=== PATIENT | female | born 2000 | race Caucasian/White ===

== ENCOUNTER 2022-12-17 17:34 | Emergency (ER) | payer OTHER, SELFPAY ==
[2022-12-17 18:25] VITALS: BP 116/56; PULSE 83; RESP 18; TEMP 37.1; O2SAT 98; BMI 21.5
--- NOTE | 2022-12-17 18:25 | ED_ITS ---
HPI - Female Genitourinary General Chief complaint: General Medical Stated complaint: vaginal swelling,redness Time Seen by Provider: 12/17/22 22:38 Related Data Allergies Allergy/AdvReac Type Severity Reaction Status Date / Time acetaminophen [From Tylenol] Allergy Hives Verified 12/17/22 18:25 PMFSH Social History Social History Advance Directives: No Advance Directives Information Provided: No Physical Exam Vital Signs: Vital Signs: Last Vital Signs Temp 98.8 F 12/17/22 18:25 Pulse 83 12/17/22 18:25 Resp 18 12/17/22 18:25 BP 116/56 L 12/17/22 18:25 Pulse Ox 98 12/17/22 18:25 O2 Del Method Room Air 12/17/22 18:25 BMI result Body Mass Index 21.5 Course Course Course Narrative: This is a rapid medical exam. deferred additional HPI, ROS, PE to primary provider. 22 yo female with history of seizures on keppra here with complaints of left sided vaginal swelling, pain, +vaginal discharge. Recently completed an antibiotic for an unknown vaginal infection. +sexually active. Unable to visualize in triage. Will obtain UA, ur preg, CT NG Will need pelvic exam VSS Reevaluation(s) Reevaluation #1: Patient eloped prior to being seen. Medical Decision Making Lab Data Labs: Lab Results 12/17/22 Range/Units 21:17 Urine Color Yellow Urine Appearance Clear Urine pH 5.5 (5.0-9.0) Ur Specific [place] 1.025 (1.005-1.025) Urine Protein Negative (Neg-Trace) mg/dL Urine Glucose (UA) Negative (Negative) mg/dL Urine Ketones Negative (Negative) mg/dL Urine Blood Negative (Negative) Urine Nitrite Negative (Negative) Ur Leukocyte Esterase Moderate (2+) H (Negative) Urine RBC 0-2 (0-2) /HPF Urine WBC 11-20 H (0-5) /HPF Ur Squamous Epith Cells 6-10 (0-2) /HPF Urine Bacteria 1+ (None Seen) Hyaline Casts 0-2 (0-2) /LPF Urine Test NEGATIVE (NEGATIVE) Discharge Plan Discharge Clinical Impression: Vaginal discharge Patient Disposition: Elopement
[2022-12-17 21:27] LABS: Appearance Urine Clear; Color Urine Yellow; Glucose Urine UA Negative (Negative); Leukocyte Esterase Urine Moderate (2+) (Negative); Nitrite Urine Negative (Negative); PH 5.5 (5.0-9.0); Specific Gravity - Urine 1.025 (1.005-1.025); UMIC TRIGGER UACC YES; Urine Blood Negative (Negative); Urine Ketones Negative (Negative); Urine Protein Negative (Neg-Trace)
[2022-12-17 21:28] LABS: UPreg QC Valid YES; Urine Pregnancy NEGATIVE (NEGATIVE)
[2022-12-17 21:29] LABS: Bacteria Urine 1+ (None Seen); Hyaline Casts Urine 0-2 /LPF (0-2); RBC Urine 0-2 /HPF (0-2); UACC Culture Trigger YES
--- OUTSIDE RECORDS SUMMARY | 2022-12-17 22:03 | XMS_ITS | Summary of Care ---
Author Name Unknown Organization [facility] sp[facility] Address [address] [place] [address]- Care Team Providers Care Facility Designer Name Role Phone [facility] Primary Care Physic kash Encounter CHB_CSN [id number] Date(s): 05/12/20 - 05/12/[address] [address]- [facility] Encounter Diagnosis Cellulitis of face(Discharge Diagnosis) - 05/12/20 Vomiting(Discharge Diagnosis) - 05/12/20 Abdominal pain(Discharge Diagnosis) - 05/12/20 Discharge Disposition: Home Attending Physician: JEANNINE ABEBE MD Referring Physician: JACKSON FIERRO MD Allergies, Adverse Reactions, Alerts Substance Reaction Severity Status Tylenol Active Medications cephalexin 500 mg oral capsule Dose: 500 mg, PO, QID, Take for 7 day, Dispense Quantity: 28 cap, Entered: 05/12/20 2:46:00 EST, Stop: 05/19/20 2:46:00 EST, [id number] Start Date: 05/12/20 Stop Date: 05/19/20 Status: Ordered Problem List Condition Effective Dates Status Health Status Inform ant Dental caries(Confirmed) Active Dysfunctional uterine bleeding(Confirmed) Active Prolonged QT interval(Confirmed) 1 Active 1Added by [facility]
[2022-12-18 02:19] LABS: CT PCR NOT DETECTED (Not Detect.); NG PCR NOT DETECTED (Not Detect.)
== END 2022-12-17 22:59 | disposition left against medical advice (07) ==
PROVIDERS: Nurse Practitioner Family; Emergency Provider Emergency Medicine
DX: N89.8 Other specified noninflammatory disorders of vagina (principal); Z79.899 Other long term (current) drug therapy
CPT/HCPCS: 0353U; 81001; 81025; 87086; 99282; 99283

== ENCOUNTER 2022-12-18 14:04 | Emergency (ER) | payer OTHER, SELFPAY ==
[2022-12-18 15:30] VITALS: BP 124/52; PULSE 85; RESP 17; TEMP 36.3; O2SAT 100; BMI 22.4
--- NOTE | 2022-12-18 17:13 | ED_ITS ---
HPI - General Adult General Chief complaint: General Medical Stated complaint: Swelling Private Area Time Seen by Provider: 12/18/22 17:12 Source: patient and old records reviewed Mode of arrival: ambulatory Limitations: no limitations History of Present Illness HPI narrative: 22-year-old female presents to the ER for evaluation of left labia swelling and redness.She states it started a couple of days ago and has been very itchy. She tried [id number] 1 time intravaginal yeast infection treatment with no relief. She was seen here yesterday, had a negative gonorrhea and chlamydia test but ended up eloping from the waiting room. She states she did have transient green vaginal discharge over week ago that has since resolved. No further vaginal discharge. She states her last menstrual period was about a month ago and was for 4 days. She has not had sex in 4-6 weeks. No lesions on her genitalia. No urinary symptoms. MD complaint: Left labia redness, swelling, itching Onset (ago): day(s) Location: genitals Radiation: non-radiation Severity: moderate Quality: aching Pain Consistency: intermittent Exacerbating factors: other ( palpation) Associated symptoms: denies other symptoms Treatments prior to arrival: none Related Data Previous Rx's Medication Instructions Recorded clotrimazole 1 % topical cream 1 appl topical BID #45 grams 12/18/22 fluconazole 150 mg tablet 150 mg PO Q3D 2 doses #2 tabs 12/18/22 (Diflucan) Allergies Allergy/AdvReac Type Severity Reaction Status Date / Time acetaminophen [From Tylenol] Allergy Hives Verified 12/17/22 18:25 Review of Systems Review of Systems: Yes all other systems are reviewed and are negative [facility] Social History Social History Advance Directives: No Advance Directives Information Provided: No Physical Exam ED Vital Signs: Vital Signs - 24 hr 12/18/22 15:30 Temperature 97.3 F Pulse Rate 85 Respiratory Rate 17 Blood Pressure 124/52 L Pulse Oximetry 100 Oxygen Delivery Method Room Air BMI result Body Mass Index 22.4 Appearance: Alert. Oriented X3. No acute distress. HEENT: normal inspection CVS: Normal heart rate and rhythm. Pulses normal. Respiratory: No respiratory distress. Skin: Skin warm and dry. Normal skin color. Normal skin turgor. No rashes. Abd: soft nontender, nondistended, +BS : left labia minora with mild swelling near the introitus, w/ white discharge on the skin of both labia minora, mild excoriation, no vesicles. no induration or fluctuance. Extremities: normal inspection x4. Neuro: Oriented X 3. No motor deficit. No sensory deficit. Medical Decision Making Medical Decision Making [facility] Narrative: 22-year-old female presents to the ER for evaluation of left labial redness, pain, itching and swelling for the last couple of days. Previously had green vaginal discharge and tested negative for STIs yesterday. No current vaginal discharge. Examination is most consistent with a skin yeast infection. She failed [id number]-[id number] 1 time treatment with topical antifungal. Will plan to start Diflucan for her. Outpatient follow-up was encouraged. Stable for discharge home. Differential Diagnosis Differential Diagnoses: The differential diagnosis associated with the p resentation includes yeast infection, folliculitis, abscess, bartholin cyst, STI, UTI, herpes Lab Data [facility] Lab Attestation statement: I reviewed the patient's lab results. Urinalysis from yesterday was negative for , question of you TI however there was squamous cell contamination and patient has no urinary symptoms External Record Review External record reviewed: Prior outpatient labs Prescription Management I considered prescription management with: Other (antifungal) Social Determinants Patient?s care significantly limited by Social Determinants of Health including: Other Social Determinant of Health Critical Care Time Critical Care Time Critical Care Time: No Discharge Plan Discharge Clinical Impression: Skin yeast infection Patient Disposition: Home, Self-Care Instructions: Skin Yeast Infection (ED) Additional Instructions: Take the prescribed antifungal medication as directed. Take her 1st oral dose tonight. Use the topical cream as directed, for at least 1 week. Recommend following up with local [facility] for additional evaluation and treatment if symptoms persist If you develop new or worsening symptoms call 911 or come back to the ER for further evaluation. Prescriptions: New fluconazole [Diflucan] 150 mg tablet 150 mg PO Q3D Qty: 2 0RF clotrimazole 1 % cream 1 appl topical BID Qty: 45 0RF Interventions: ED Discharge Assessment Last Done: 12/18/22 17:59 Discharge Date/Time: 12/18/22 18:02
== END 2022-12-18 18:02 | disposition home or self-care (01) ==
PROVIDERS: Emergency Provider Emergency Medicine
DX: B37.2 Candidiasis of skin and nail (principal); N89.8 Other specified noninflammatory disorders of vagina
CPT/HCPCS: 99282; 99283

== ENCOUNTER 2023-01-11 11:18 | Emergency (ER) | payer OTHER, SELFPAY ==
[2023-01-11 12:14] VITALS: BP 106/52; PULSE 65; RESP 17; TEMP 36.1; O2SAT 99; BMI 23.1
--- NOTE | 2023-01-11 12:24 | ED.GENADULT ---
HPI - General Adult General Chief complaint: General Medical Stated complaint: Vaginal irritation Time Seen by Provider: 01/11/23 12:32 Source: patient Mode of arrival: ambulatory Limitations: no limitations History of Present Illness HPI narrative: Patient is a 22 year old assigned female at with no reported medical history presenting to the emergency department today with vaginal irritation. Patient states that over the last few days her vulva has been much more irritated with an odor and some discharge. Patient denies any dizziness, lightheadedness, abdominal pain, nausea, vomiting, fever, chills, blurry vision, double vision, loss of vision, chest pain, difficulty breathing, shortness of breath, back pain, night sweats, pain with urination, increased urinary frequency, increased urinary urgency, blood in her urine or stool, syncope or a near syncopal episode, recent trauma or falls, bowel incontinence, bladder incontinence, bowel retention, bladder retention, or any other complaints at this time. Onset (ago): day(s) Location: genitals Radiation: non-radiation Severity: mild Severity scale (1-10): 4 Quality: burning and aching Pain Consistency: constant Relieving factors: none Exacerbating factors: none Associated symptoms: denies other symptoms Treatments prior to arrival: none Related Data Previous Rx's Medication Instructions Recorded clotrimazole 1 % topical cream 1 appl topical BID #45 grams 12/18/22 fluconazole 150 mg tablet 150 mg PO Q3D 2 doses #2 tabs 12/18/22 (Diflucan) doxycycline hyclate 100 mg tablet 100 mg PO BID 7 days #14 tabs 01/11/23 fluconazole 150 mg tablet 150 mg PO Q3D 2 doses #2 tabs 01/11/23 (Diflucan) metronidazole 500 mg tablet 500 mg PO BID 7 days #14 tabs 01/11/23 Allergies Allergy/AdvReac Type Severity Reaction Status Date / Time acetaminophen [From Tylenol] Allergy Hives Verified 12/17/22 18:25 Review of Systems Constitutional: Constitutional: Reports no additional constitutional complaints, Denies chills, Denies fever(s) and Denies night sweats Eyes: Eyes: Reports no additional eye complaints, Denies blurry vision, Denies change in vision, Denies diplopia, Denies eye discharge, Denies loss of vision and Denies eye pain ENT: Denies dizziness Cardiovascular: Cardiovascular: Reports no additional cardiovascular complaints, Denies chest pain, Denies lightheadedness, Denies Loss of Consciousness and Denies dyspnea Respiratory: Respiratory: Reports no additional respiratory complaints and Denies dyspnea Gastrointestinal: Gastrointestinal: Reports no additional gastrointestinal complaints, Denies abdominal pain, Denies melena, Denies hematochezia, Denies change in bowel habits and Denies change in stool character Genitourinary: Genitourinary: Denies hematuria, Denies urinary frequency, Denies dysuria, Denies urinary incontinence, Denies urinary hesitancy, Denies urinary urgency, Reports vaginal discharge, Reports vaginal odor and Reports vaginal pruritus Musculoskeletal: Musculoskeletal: Reports no additional musculoskeletal complaints, Denies numbness and Denies tingling Neurologic: Denies dizziness, Denies loss of vision, Denies numbness and Denies tingling Psychiatric: Psychiatric: Reports no additional psychiatric complaints Endocrine: Endocrine: Reports no additional endocrine complaints Hematologic/Lymphatic: Hematologic/Lymphatic: Reports no additional hematologic/lymphatic complaints Allergic/Immunologic: Allergic/Immunologic: Reports no additional allergic/immunologic complaints PMFSH Past Medical History Attestation statement: The following information was validated with the patient. Source: old records reviewed and nursing notes reviewed Social History Social History Advance Directives: No Advance Directives Information Provided: Yes Physical Exam ED Vital Signs: Vital Signs - 24 hr 01/11/23 12:14 Temperature 96.9 F Pulse Rate 65 Respiratory Rate 17 Blood Pressure 106/52 L Pulse Oximetry 99 Oxygen Delivery Method Room Air BMI result Body Mass Index 23.1 Const General: cooperative, no acute distress, alert and awake Nutritional Appearance: well nourished Orientation/consciousness: patient oriented x3 Limitations: no limitations HENMT Head: Yes normal to inspection and Yes atraumatic Ears: hearing grossly normal bilaterally and external ears normal General nose exam: Normal external nose present, no nasal discharge noted and no epistaxis Face and sinus: Yes normal facial exam, No abrasion and No laceration Mouth: Normal oral and palatal mucosa present, no drooling and no muffled voice Eyes General: appearance normal, both eyes and all related structures Periorbital: periorbital findings normal Eyelids: Yes eyelids normal Conjunctivae: conjunctivae normal Pupils: Equal, round and reactive pupils present EOM: EOMs intact bilaterally Neck Neck: Yes normal visual inspection, Yes full ROM and Yes no lymphadenopathy Chest Chest palpation & inspection: normal inspection of the chest Resp Effort & Inspection: normal respiratory effort and able to speak in complete sentences GI Inspection: Yes normal to inspection General: Yes deferred Neuro General: patient oriented x3 and moves all extremities Cranial nerves: Yes Equal, round and reactive pupils present Cognition (Neuro): normal cognition Motor exam (neuro): 5/5 motor strength present throughout Sensory Exam: Normal double simultaneous stimulation for sensation Coordination: [id number]-[id number] test normal Extrem General: Yes normal to inspection, Yes full ROM and Yes capillary refill normal Psych Appearance: grossly normal Mental Status: mental status grossly normal Affect: normal affect Attitude: cooperative Thought process: Normal thought process present Thought content: Normal thought content present Insight: Good insight present (Psych) Course Course Course Narrative: This is an RME: Additional HPI, ROS, PE not included below will be deferred to primary provider. This is a [id number], with a hx of seizures on Keppra, presenting to the ER with complaint of vaginal irritation x several days. Pt has been seen here twice in december for similar symptoms. Pt currently on phone with PCP who is requesting keppra levels. Difficult to get a history from patient given pt actively being on the phone. Needs pelvic examination. Medications Administered Discontinued Medications Generic Name Dose Route Start Last Admin Trade Name Rosario PRN Reason Stop Dose Admin Ceftriaxone Sodium 500 mg/ 0 mg 01/11/23 12:38 01/11/23 13:20 Lidocaine HCl 1 ml IM 01/11/23 12:39 500 kit ONCE ONE Administration Medical Decision Making Medical Decision Making [facility] Narrative: Patient is a 22 year old assigned female at with no reported medical history presenting to the emergency department today with vaginal irritation. Patient's physical exam was unremarkable. Patient requested to defer a vaginal examination. Patient's urine showed a possible urinary tract infection however, given the patient's clinical presentation, will await until culture report to treat. Patient treated with ceftriaxone, PO Doxy, PO flagyl, and PO diflucan. I explained my physical exam findings as well as all test results to the patient. I answered all questions asked by the patient. I stressed the importance of the patient taking her medication as prescribed. I stressed the importance of the patient following up with her primary care provider. I stressed the importance of the patient returning to the emergency department immediately if her symptoms were to worsen or if she were to develop any dizziness, shortness of breath, difficulty breathing, chest pain, blurry vision, loss of vision, nausea, vomiting, abdominal pain, fever, chills, back pain, or any other complaints. Patient verbalized agreement and understanding with this treatment plan and discharge. Differential Diagnosis Differential Diagnoses: The differential diagnosis associated with the presentation includes Vaginal yeast BV UTI STI exposure Chlamydia Gonorrhea Trich Lab Data MDM Lab Attestation statement: I reviewed the patient's lab results. My interpretation of these results are in the rationale portion of this note. Labs: Lab Results 01/11/23 Range/Units 12:40 Urine Color Yellow Urine Appearance Clear Urine pH 6.0 (5.0-9.0) Ur Specific [place] 1.025 (1.005-1.025) Urine Protein Negative (Neg-Trace) mg/dL Urine Glucose (UA) Negative (Negative) mg/dL Urine Ketones Negative (Negative) mg/dL Urine Blood Negative (Negative) Urine Nitrite Negative (Negative) Ur Leukocyte Esterase Small (1+) H (Negative) Urine RBC 0-2 (0-2) /HPF Urine WBC 0-5 (0-5) /HPF Ur Squamous Epith Cells 6-10 (0-2) /HPF Urine Bacteria Trace (None Seen) Hyaline Casts 0-2 (0-2) /LPF Urine Test NEGATIVE (NEGATIVE) Prescription Management I considered prescription management with: Antibiotic (patient prescribed an antibiotic.) and Other (patient prescribed an antifungal.) Discharge Plan Discharge Clinical Impression: Vaginal irritation Patient Disposition: Home, Self-Care Instructions: Vaginal Discharge (ED) Additional Instructions: Follow up with your primary care provider. Return to the emergency department immediately if your symptoms worsen or if you develop any dizziness, shortness of breath, difficulty breathing, chest pain, blurry vision, loss of vision, nausea, vomiting, abdominal pain, fever, chills, back pain, or any other complaints. Prescriptions: New fluconazole [Diflucan] 150 mg tablet 150 mg PO Q3D Qty: 2 0RF metronidazole 500 mg tablet 500 mg PO BID 7 Days Qty: 14 0RF doxycycline hyclate 100 mg tablet 100 mg PO BID 7 Days Qty: 14 0RF No Action fluconazole [Diflucan] 150 mg tablet 150 mg PO Q3D Qty: 2 0RF clotrimazole 1 % cream 1 appl topical BID Qty: 45 0RF Referrals: [facility] [place] Group] (Call to establish and follow up with a primary care provider. If you already have a primary care provider, please follow up with them.) [facility] [place] [facility] [Provider Group] (Call to establish and follow up with a primary care provider. If you already have a primary care provider, please follow up with them.) [facility] [place] [facility] [Provider Group] (Call to establish and follow up with a primary care provider. If you already have a primary care provider, please follow up with them.) Interventions: ED Discharge Assessment Last Done: 01/11/23 13:27 Discharge Date/Time: 01/11/23 13:29 Print Language: Malagasy
[2023-01-11 12:49] LABS: Appearance Urine Clear; Color Urine Yellow; Glucose Urine UA Negative (Negative); Leukocyte Esterase Urine Small (1+) (Negative); Nitrite Urine Negative (Negative); Specific Gravity - Urine 1.025 (1.005-1.025); UMIC TRIGGER UACC YES; Urine Blood Negative (Negative); Urine Ketones Negative (Negative); Urine Protein Negative (Neg-Trace)
[2023-01-11 12:50] LABS: UPreg QC Valid YES; Urine Pregnancy NEGATIVE (NEGATIVE)
[2023-01-11 13:04] LABS: Bacteria Urine Trace (None Seen); Hyaline Casts Urine 0-2 /LPF (0-2); RBC Urine 0-2 /HPF (0-2); UACC Culture Trigger YES; WBC Urine 0-5 /HPF (0-5)
[2023-01-11] MEDS: cefTRIAXone sodium 500 MG, Lidocaine HCl 1 % MPF 1 ML IM (13:20)
[2023-01-11 14:17] LABS: CT PCR NOT DETECTED (Not Detect.); NG PCR NOT DETECTED (Not Detect.)
== END 2023-01-11 13:29 | disposition home or self-care (01) ==
PROVIDERS: Physician Assistant Medical; Emergency Provider Emergency Medicine
DX: N89.8 Other specified noninflammatory disorders of vagina (principal); R30.0 Dysuria; Z79.899 Other long term (current) drug therapy
CPT/HCPCS: 0353U; 81001; 81025; 87086; 87147; 96372; 99283; 99284; J0696

== ENCOUNTER 2023-01-14 00:46 | Emergency (ER) | payer OTHER, SELFPAY ==
[2023-01-14 00:51] VITALS: BP 120/78; PULSE 88; O2SAT 99
[2023-01-14 01:31] VITALS: BP 115/60; PULSE 65; RESP 18; TEMP 36.7; O2SAT 98; BMI 25.8
[2023-01-14 02:20] LABS: Alanine Aminotransferase 10 U/L (0-31); Albumin Level 4.3 g/dL (3.5-5.0); Alkaline Phosphatase 78 U/L (39-117); Anion Gap 16 (12-20); Aspartate Amino Transferase 18 U/L (5-31); Bilirubin Total 0.3 mg/dL (0.0-1.0); Blood Urea Nitrogen 15 mg/dL (9-16); Calcium 9.8 mg/dL (8.4-10.2); Carbon Dioxide 23 mmol/L (22-29); Chloride 104 mmol/L (96-108); Creatinine Clr Calc Pharmacy 115.3; Estimated Glomerular Filt Rate > 60; Glucose Random 82 mg/dL (60-115); Lipase 23 U/L (8-78); Potassium 3.7 mmol/L (3.3-5.1); Sodium 139 mmol/L (135-145); Total Protein 7.7 g/dL (6.5-8.0)
[2023-01-14 02:23] VITALS: BP 109/55; PULSE 80; RESP 18; TEMP 36.7; O2SAT 98
[2023-01-14 02:30] LABS: Appearance Urine Clear; Color Urine Yellow; Glucose Urine UA Negative (Negative); Leukocyte Esterase Urine Negative (Negative); Nitrite Urine Negative (Negative); Specific Gravity - Urine 1.025 (1.005-1.025); Urine Blood Negative (Negative); Urine Ketones Negative (Negative); Urine Protein Negative (Neg-Trace)
[2023-01-14 02:31] LABS: Hematocrit 39.3 % (37.0-47.0); Hemoglobin 12.7 g/dl (12.0-16.0); Mean Corpuscular HGB Conc 32.3 g/dl (31.0-35.0); Mean Corpuscular Hemoglobin 26.3 pg (27.0-33.0); Mean Corpuscular Volume 81.5 fL (80.0-98.0); Mean Platelet Volume 12.2 fL (9.4-12.3); Platelet Count 215 X10*3/uL (160-400); Red Blood Count 4.82 X10*6/uL (4.20-5.50); Red Cell Distribution Width 14.4 % (11.0-16.0); White Blood Count 8.3 X10*3/uL (4.8-10.8)
[2023-01-14 02:32] LABS: UPreg QC Valid YES; Urine Pregnancy NEGATIVE (NEGATIVE)
--- NOTE | 2023-01-14 04:07 | ED_ITS ---
HPI - Abdominal Pain General Chief Complaint: Abdominal Pain Stated Complaint: Nausea/Vomitting and weakness Time Seen by Provider: 01/14/23 03:12 Source: patient Mode of arrival: ambulatory Limitations: no limitations History of Present Illness HPI narrative: Patient nonspecific complaints for last few days complaining of nausea weakness noticed patient relax in the ER having chips no active vomiting noticed no abdominal pain no urinary complaint Related Data Previous Rx's Medication Instructions Recorded clotrimazole 1 % topical cream 1 appl topical BID #45 grams 12/18/22 fluconazole 150 mg tablet 150 mg PO Q3D 2 doses #2 tabs 12/18/22 (Diflucan) doxycycline hyclate 100 mg tablet 100 mg PO BID 7 days #14 tabs 01/11/23 fluconazole 150 mg tablet 150 mg PO Q3D 2 doses #2 tabs 01/11/23 (Diflucan) metronidazole 500 mg tablet 500 mg PO BID 7 days #14 tabs 01/11/23 Allergies Allergy/AdvReac Type Severity Reaction Status Date / Time acetaminophen [From Tylenol] Allergy Hives Verified 12/17/22 18:25 Review of Systems Review of Systems Yes all other systems are reviewed and are negative [facility] Social History Social History Advance Directives: No Advance Directives Information Provided: Yes Physical Exam ED Vital Signs: Vital Signs - 24 hr 01/14/23 01:31 01/14/23 02:23 Temperature 98.0 F 98.1 F Pulse Rate 65 80 Respiratory Rate 18 18 Blood Pressure 115/60 109/55 L Pulse Oximetry 98 98 Oxygen Delivery Method Room Air Room Air BMI result Body Mass Index 25.8 Appearance: Alert. Oriented X3. No acute distress. Eyes: No pallor or icterus ENT: Pharynx normal. Oral Mucosa moist Neck: Normal inspection. Neck supple. CVS: Normal heart rate and rhythm. Pulses normal. Respiratory: No respiratory distress. Equal air entry bilateral, no wheezing/rales/rhonchi Abdomen: Soft and nontender. Bowel sounds are present, no mass palpable, no CVA tenderness Skin: Skin warm and dry. Normal skin color. Normal skin turgor. Neuro: Oriented X 3. Medical Decision Making Medical Decision Making MDM Narrative: Patient nonspecific complaints does not seem to be any distress refused to take discharge papers or medication discharge patient home Differential Diagnosis Differential Diagnoses: The differential diagnosis associated with the presentation includes Anxiety/viral syndrome Lab Data MDM Lab Attestation statement: I reviewed the patient's lab results. 01/14/23 01:57 01/14/23 01:57 Labs: Lab Results 01/14/23 01/14/23 Range/Units 01:56 01:57 WBC 8.3 (4.8-10.8) X10*3/uL RBC 4.82 (4.20-5.50) X10*6/uL Hgb 12.7 (12.0-16.0) g/dl Hct 39.3 (37.0-47.0) % MCV 81.5 (80.0-98.0) fL MCH 26.3 L (27.0-33.0) pg MCHC 32.3 (31.0-35.0) g/dl RDW 14.4 (11.0-16.0) % Plt Count 215 (160-400) X10*3/uL MPV 12.2 (9.4-12.3) fL Absolute Nucleated RBC 0.000 (0.0-0.012) X10*3/uL Nucleated RBC % (auto) 0.0 (0.0-0.2) /100WBC Sodium 139 (135-145) mmol/L Potassium 3.7 (3.3-5.1) mmol/L Chloride 104 (96-108) mmol/L Carbon Dioxide 23 (22-29) mmol/L Anion Gap 16 (12-20) BUN 15 (9-16) mg/dL Creatinine 0.71 (0.5-1.4) mg/dL Estim Creat Clear Calc 115.3 Estimated GFR > 60 Random Glucose 82 (60-115) mg/dL Calcium 9.8 (8.4-10.2) mg/dL Total Bilirubin 0.3 (0.0-1.0) mg/dL AST 18 (5-31) U/L ALT 10 (0-31) U/L Alkaline Phosphatase 78 (39-117) U/L Total Protein 7.7 (6.5-8.0) g/dL Albumin 4.3 (3.5-5.0) g/dL Lipase 23 (8-78) U/L Urine Color Yellow Urine Appearance Clear Urine pH 6.0 (5.0-9.0) Ur Specific [place] 1.025 (1.005-1.025) Urine Protein Negative (Neg-Trace) mg/dL Urine Glucose (UA) Negative (Negative) mg/dL Urine Ketones Negative (Negative) mg/dL Urine Blood Negative (Negative) Urine Nitrite Negative (Negative) Ur Leukocyte Esterase Negative (Negative) Urine Test NEGATIVE (NEGATIVE) Discharge Plan Discharge Clinical Impression: Weakness Patient Disposition: Home, Self-Care Instructions: Weakness (ED) Additional Instructions: Your labs and urine are normal Follow-up with your PCP for further management Prescriptions: No Action fluconazole [Diflucan] 150 mg tablet 150 mg PO Q3D Qty: 2 0RF clotrimazole 1 % cream 1 appl topical BID Qty: 45 0RF fluconazole [Diflucan] 150 mg tablet 150 mg PO Q3D Qty: 2 0RF metronidazole 500 mg tablet 500 mg PO BID 7 Days Qty: 14 0RF doxycycline hyclate 100 mg tablet 100 mg PO BID 7 Days Qty: 14 0RF
== END 2023-01-14 04:25 | disposition home or self-care (01) ==
PROVIDERS: Emergency Provider Internal Medicine
DX: R53.1 Weakness (principal)
CPT/HCPCS: 36415; 80053; 81003; 81025; 83690; 85027; 99283

== ENCOUNTER 2023-01-17 17:12 | Emergency (ER) | payer OTHER, SELFPAY ==
[2023-01-17 17:31] VITALS: BP 128/72; PULSE 92; O2SAT 98
== END 2023-01-17 22:15 | disposition left against medical advice (07) ==
LOC: HO.ED 21:53
PROVIDERS: Emergency Provider Emergency Medicine
DX: R10.9 Unspecified abdominal pain (principal)

== ENCOUNTER 2023-02-04 19:17 | Emergency (ER) | payer OTHER, SELFPAY ==
[2023-02-04 19:23] VITALS: BP 120/47; BP 132/82; PULSE 80; PULSE 93; RESP 16; TEMP 36.6; O2SAT 98; O2SAT 99; BMI 23.0
[2023-02-04 20:23] LABS: Appearance Urine Clear; Color Urine Yellow; Glucose Urine UA Negative (Negative); Leukocyte Esterase Urine Small (1+) (Negative); Nitrite Urine Negative (Negative); Specific Gravity - Urine 1.015 (1.005-1.025); UMIC TRIGGER UACC YES; Urine Blood Negative (Negative); Urine Ketones Negative (Negative); Urine Protein Negative (Neg-Trace)
[2023-02-04 20:24] LABS: UPreg QC Valid YES; Urine Pregnancy NEGATIVE (NEGATIVE)
[2023-02-04 20:35] LABS: Bacteria Urine None Seen (None Seen); Hyaline Casts Urine 0-2 /LPF (0-2); RBC Urine 0-2 /HPF (0-2); Squamous Epithelial Cell Urine 0-2 /HPF (0-2); UACC Culture Trigger YES; WBC Urine 0-5 /HPF (0-5)
--- NOTE | 2023-02-04 20:44 | ED_ITS ---
HPI - General Adult General Chief complaint: Nausea/Vomiting/Diarrhea Stated complaint: vomiting Time Seen by Provider: 02/04/23 19:21 Source: patient Mode of arrival: ambulatory Limitations: no limitations History of Present Illness HPI narrative: Patient is a 22-year-old female with reported history of seizures presenting to the emergency department with complaining 2 days of headache, nausea and vomiting after eating which began today. She reports 1 episode of vomiting 30 minutes after eating prior to arrival. Denies any abdominal pain, diarrhea or constipation. Denies any cough, nasal congestion, ear pain, sore throat. Also reports irregular periods for the past several months, states she has not on any OCP, does not have any implants. States that she is unsure if she is possibly . She reports that she is currently residing at a woman's custodial but it is originally from [place]. Reports has been attempting to reach her neurologist to prescribe her Keppra but states they are answering her calls. Reports last dose was last night and she takes 500 mg b.i.d.. States she does not have a PCP or neurologist in this area. Reports headaches have been gradual in onset, denies worst headache of life. Denies any vision changes. Denies any dizziness, lightheadedness, syncope. Has not taken any OTC medications for her symptoms. She denies any other abnormal vaginal discharge, denies concern for STIs. MD complaint: nausea and vomiting, headache Onset (ago): day(s) Location: head Radiation: non-radiation Severity: moderate Quality: aching Pain Consistency: intermittent Relieving factors: none Exacerbating factors: none Associated symptoms: nausea/vomiting Treatments prior to arrival: none Related Data Previous Rx's Medication Instructions Recorded clotrimazole 1 % topical cream 1 appl topical BID #45 grams 12/18/22 fluconazole 150 mg tablet 150 mg PO Q3D 2 doses #2 tabs 12/18/22 (Diflucan) doxycycline hyclate 100 mg tablet 100 mg PO BID 7 days #14 tabs 01/11/23 fluconazole 150 mg tablet 150 mg PO Q3D 2 doses #2 tabs 01/11/23 (Diflucan) metronidazole 500 mg tablet 500 mg PO BID 7 days #14 tabs 01/11/23 famotidine 20 mg tablet 20 mg PO DAILY #7 tabs 02/04/23 levetiracetam 500 mg tablet 500 mg PO BID #14 tabs 02/04/23 Allergies Allergy/AdvReac Type Severity Reaction Status Date / Time acetaminophen [From Tylenol] Allergy Hives Verified 02/04/23 19:31 Review of Systems Review of Systems: As per HPI. Yes all other systems are reviewed and are negative Constitutional: Constitutional: Reports as per HPI [facility] Social History Social History Advance Directives: No Advance Directives Information Provided: No Physical Exam ED Vital Signs: Vital Signs - 24 hr 02/04/23 19:23 Temperature 97.8 F Pulse Rate 80 Respiratory Rate 16 Blood Pressure 120/47 L Pulse Oximetry 99 Oxygen Delivery Method Room Air BMI result Body Mass Index 23.0 Vital signs have been reviewed and appear to be correct. Blood pressure normal. Heart rate normal. Respiratory rate normal. Temperature normal. Oxygen saturation normal. Const General: cooperative, healthy appearing and no acute distress Orientation/consciousness: oriented to person, oriented to place, oriented to time and patient oriented x3 Limitations: no limitations HENMT Head: Yes normocephalic and Yes atraumatic Ears: external ears normal General nose exam: Normal external nose present Face and sinus: Yes face symmetric Mouth: oropharynx normal and moist mucous membranes Throat: Yes uvula midline Eyes Pupils: Equal, round and reactive pupils present Neck Neck: Yes normal visual inspection and Yes supple Resp Effort & Inspection: normal respiratory effort and able to speak in complete sentences Auscultation: clear to auscultation bilaterally Cardio Rate: regular rate Rhythm: regular rhythm Heart sounds: S1 normal heart sound present and S2 normal heart sound present GI Palpation (GI): Soft to palpation and nontender Auscultation: normoactive bowel sounds General: Yes no CVA tenderness Back/Spine/Pelvis Back: no CVA tenderness Skin General skin exam: elasticity normal and turgor normal Neuro General: oriented to person, oriented to place, oriented to time, patient oriented x3, moves all extremities, no focal motor deficits and CN's II-XI intact bilaterally Cranial nerves: Yes Equal, round and reactive pupils present Cognition (Neuro): normal cognition Extrem General: Yes full ROM, Yes no pedal edema and Yes no calf tenderness Psych Mental Status: mental status grossly normal Affect: normal affect Thought process: Normal thought process present Medications Administered Discontinued Medications Generic Name Dose Route Start Last Admin Trade Name Rosario PRN Reason Stop Dose Admin Levetiracetam 500 mg 02/04/23 20:45 02/04/23 20:56 Levetiracetam 500 Mg Tablet PO 02/04/23 20:46 500 mg ONCE ONE Administration Medical Decision Making Medical Decision Making [facility] Narrative: Patient is a 22-year-old female with reported history of seizures presenting to the emergency department with complaining 2 days of headache, nausea and vomiting after eating which began today. On exam patient is awake, A+Ox3, VS WNL, afebrile, normal neurological exam without focal deficits, physical exam findings as above. Given reported symptoms and physical exam findings, initial differential includes viral illness, GERD, gastritis, UTI, Covid, flu, , ectopic . Urine positive for 1+ leukocytes, negative nitrates, no bacteria, do not suspect UTI this time. Urine negative. Swabs for COVID and flu negative. Will order patient's regular dose of Keppra and will send 1 week prescription to pharmacy. Discussed with patient that since she is planning on remaining in [facility], she should establish care with a PCP and neurologist here. Will provide resources for establishing care with a PCP and will refer to neurology. Feel nausea and vomiting likely gastritis or GERD, will prescribe short course of famotidine. Return precautions discussed at bedside. All results discussed and all questions answered. Patient verbalized understanding of and agreement with plan. Differential Diagnosis Differential Diagnoses: The differential diagnosis associated with the presentation includes As per MDM. Lab Data [facility] Lab Attestation statement: I reviewed the patient's lab results. As per MDM. Labs: Lab Results 02/04/23 02/04/23 Range/Units 20:11 21:01 Urine Color Yellow Urine Appearance Clear Urine pH 7.0 (5.0-9.0) Ur Specific [place] 1.015 (1.005-1.025) Urine Protein Negative (Neg-Trace) mg/dL Urine Glucose (UA) Negative (Negative) mg/dL Urine Ketones Negative (Negative) mg/dL Urine Blood Negative (Negative) Urine Nitrite Negative (Negative) Ur Leukocyte Esterase Small (1+) H (Negative) Urine RBC 0-2 (0-2) /HPF Urine WBC 0-5 (0-5) /HPF Ur Squamous Epith Cells 0-2 (0-2) /HPF Urine Bacteria None Seen (None Seen) Hyaline Casts 0-2 (0-2) /LPF Urine Test NEGATIVE (NEGATIVE) COVID-19 (JOYCE) Negative (Negative) COVID-19 Clin Com See Note Influenza Type A (DAPHNEY) Negative (Negative) Influenza Type B (DAPHNEY) Negative (Negative) Influenza A & B Note See Note External Record Review External record reviewed: Inpatient record, Office record and Outpatient record Prescription Management I considered prescription management with: Other Chronic Conditions Patient?s care impacted by: Other (Seizure disorder) Discharge Plan Discharge Clinical Impression: Nausea & vomiting, Medication refill Patient Disposition: Home, Self-Care Instructions: Acute Nausea and Vomiting (ED) Additional Instructions: You are evaluated in the emergency department today for reports of nausea and vomiting which is likely related to acid reflux. You are being prescribed a medication to treat the symptoms. You were also medicated with a dose of your seizure medication in the emergency department today. You are being prescribed one week of levetiracetam but it is important that you have this medication prescribed by your neurologist or primary care provider. If you need a neurologist in this area, you are being referred to an [facility] neurologist. It is also important that you establish a primary care provider in this area. A list of phone number was provided with your discharge instructions. Prescriptions: New famotidine 20 mg tablet 20 mg PO DAILY Qty: 7 0RF levetiracetam 500 mg tablet 500 mg PO BID Qty: 14 0RF No Action fluconazole [Diflucan] 150 mg tablet 150 mg PO Q3D Qty: 2 0RF clotrimazole 1 % cream 1 appl topical BID Qty: 45 0RF fluconazole [Diflucan] 150 mg tablet 150 mg PO Q3D Qty: 2 0RF metronidazole 500 mg tablet 500 mg PO BID 7 Days Qty: 14 0RF doxycycline hyclate 100 mg tablet 100 mg PO BID 7 Days Qty: 14 0RF Referrals: Gisel Mayberry MD [Physician] -
[2023-02-04] MEDS: levETIRAcetam 500 MG TABLET PO (20:56)
--- NOTE | 2023-02-04 20:57 | PC.NURSE ---
pt medicated according to mar. pt calm and cooperative. pt child at bedside lights dimmed
[2023-02-04 21:21] LABS: COVID-19 Test Negative (Negative); IDNOW Serial# 08D9AD1C; IDNOW Serial# BCCEAD1C; Influenza A Negative (Negative); Influenza B2 Negative (Negative)
[2023-02-04 21:36] VITALS: BP 127/65; PULSE 76; RESP 18; O2SAT 100
== END 2023-02-04 21:49 | disposition home or self-care (01) ==
PROVIDERS: Registered Nurse Emergency; Emergency Provider Internal Medicine
DX: R11.2 Nausea with vomiting, unspecified (principal); R51.9 Headache, unspecified; Z76.0 Encounter for issue of repeat prescription; Z11.52 Encounter for screening for COVID-19; Z20.822 Contact with and (suspected) exposure to COVID-19; Z79.899 Other long term (current) drug therapy
CPT/HCPCS: 81001; 81025; 87086; 87502; 87635; 99283; 99284

== ENCOUNTER 2023-02-15 16:20 | Emergency (ER) | payer OTHER, SELFPAY ==
[2023-02-15 16:23] VITALS: BP 133/46; PULSE 72; RESP 16; TEMP 37.1; BMI 24.2
--- NOTE | 2023-02-15 16:24 | ED_ITS ---
HPI - General Adult General Chief complaint: Vaginal Bleeding Stated complaint: vaginal spotting Time Seen by Provider: 02/15/23 18:47 Source: patient Mode of arrival: ambulatory Limitations: no limitations History of Present Illness HPI narrative: 22-year-old female presents to the ED for vaginal spotting for a couple of days. patient states she took a test at home with two faint lines positive for . patient denies any lower abdominal pain, flank pain, fever, or chills. Related Data Previous Rx's Medication Instructions Recorded clotrimazole 1 % topical cream 1 appl topical BID #45 grams 12/18/22 fluconazole 150 mg tablet 150 mg PO Q3D 2 doses #2 tabs 12/18/22 (Diflucan) doxycycline hyclate 100 mg tablet 100 mg PO BID 7 days #14 tabs 01/11/23 fluconazole 150 mg tablet 150 mg PO Q3D 2 doses #2 tabs 01/11/23 (Diflucan) metronidazole 500 mg tablet 500 mg PO BID 7 days #14 tabs 01/11/23 famotidine 20 mg tablet 20 mg PO DAILY #7 tabs 02/04/23 levetiracetam 500 mg tablet 500 mg PO BID #14 tabs 02/04/23 Allergies Allergy/AdvReac Type Severity Reaction Status Date / Time acetaminophen [From Tylenol] Allergy Hives Verified 02/04/23 19:31 Review of Systems 2 Review of Systems: vaginal spotting Yes all other systems are reviewed and are negative PMFSH Social History Social History Smoked in Last 30 Days: No Use of substances other than those prescribed or required for medical reasons: No Advance Directives: No Advance Directives Information Provided: No Patient : Yes Physical Exam ED Vital Signs: Vital Signs - 24 hr 02/15/23 16:23 02/15/23 18:00 Temperature 98.7 F 97.4 F Pulse Rate 72 60 Respiratory Rate 16 16 Blood Pressure 133/46 L 141/77 H Pulse Oximetry 100 Oxygen Delivery Method Room Air Room Air BMI result Body Mass Index 24.2 Const General: cooperative, healthy appearing, comfortable, no acute distress, well developed, alert and awake Orientation/consciousness: oriented to person, oriented to place, oriented to time and patient oriented x3 HENMT Head: Yes normal to inspection, Yes No palpable skull fracture present, Yes normocephalic, Yes atraumatic and No abrasion Eyes General: appearance normal, both eyes and all related structures Neck Neck: Yes normal visual inspection, Yes full ROM, Yes no lymphadenopathy, Yes no meningeal signs, Yes trachea midline, Yes supple, No anterior neck swelling and No tender Chest Chest palpation & inspection: normal inspection of the chest and normal palpation of entire chest wall Resp Effort & Inspection: normal respiratory effort and able to speak in complete sentences Auscultation: clear to auscultation bilaterally Cardio Jugular venous distension: no JVD Heart sounds: S1 normal heart sound present and S2 normal heart sound present GI Inspection: Yes normal to inspection and No abdominal wall ecchymosis Palpation (GI): Soft to palpation, not firm, nontender, no guarding and not rigid Other: patient refuse pelvic exam General: No CVA tenderness Back/Spine/Pelvis Back: No CVA tenderness and No back tenderness Skin General skin exam: no rashes or lesions noted, elasticity normal and turgor normal Neuro General: oriented to person, oriented to place, oriented to time, patient oriented x3, gait normal, tone normal, moves all extremities, Normal light touch and pain sensation, no meningeal signs, no focal motor deficits, CN's II-XI intact bilaterally and normal sensation to monofilament Extrem General: Yes normal to inspection and Yes full ROM Psych Appearance: grossly normal and well kempt Course Course Course Narrative: RME- 22 year old female presents for evaluation of a small amount of vaginal bleeding and a positive test from this morning. Her last menstrual cycle was 2 weeks ago. Plan for labs including a type and screen Medical Decision Making Medical Decision Making MDM Narrative: 24 yold female presents to the ED vaginal spotting and believing she is . Patient denies any profuse vaginal bleeding, vaginal discharge, abdominal pain, flank pain, fever, chills, recent trauma, recent rough sex. Patient does not believe she has STI. Patient states taking test today at home which was faintly positive pain. Patient labs are normal. Patient not anemic. Urine negative for infection. Beta hCG negative for . Patient refused pelvic exam. Patient walked out the ER before receiving discharge papers. 19:31 Differential Diagnosis Differential Diagnoses: The differential diagnosis associated with the presentation includes (UTI, ectopic , Dysfunctional BLeeding, , threatened ) Admission/Observation Consideration of admission/observation: Escalation of care including admission/observation considered Lab Data MDM Lab Attestation statement: I reviewed the patient's lab results. 02/15/23 17:20 02/15/23 17:20 Labs: Lab Results 02/15/23 02/15/23 Range/Units 17:20 17:30 WBC 5.6 (4.8-10.8) X10*3/uL RBC 4.65 (4.20-5.50) X10*6/uL Hgb 12.9 (12.0-16.0) g/dl Hct 39.5 (37.0-47.0) % MCV 84.9 (80.0-98.0) fL MCH 27.7 (27.0-33.0) pg MCHC 32.7 (31.0-35.0) g/dl RDW 14.4 (11.0-16.0) % Plt Count 176 (160-400) X10*3/uL MPV 12.2 (9.4-12.3) fL Immature Gran % (Auto) 0.2 (0.0-0.4) % Neut % (Auto) 55.0 (45-73) % Lymph % (Auto) 34.5 (20-40) % Robertson % (Auto) 8.6 (2-11) % Eos % (Auto) 1.3 (0-4) % Baso % (Auto) 0.4 (0-2) % Lymph # (Auto) 1.9 (1.2-4.9) X10*3/uL Robertson # (Auto) 0.5 (0.1-1.2) X10*3/uL Eos # (Auto) 0.1 (0.0-0.4) X10*3/uL Baso # (Auto) 0.0 (0.0-0.2) X10*3/uL Abs Immat Gran (auto) 0.01 (0.00-0.03) X10*3/uL Absolute Neuts (auto) 3.1 (2.0-8.3) x10*3/uL Absolute Nucleated RBC 0.000 (0.0-0.012) X10*3/uL Nucleated RBC % (auto) 0.0 (0.0-0.2) /100WBC Sodium 141 (135-145) mmol/L Potassium 3.7 (3.3-5.1) mmol/L Chloride 107 (96-108) mmol/L Carbon Dioxide 27 (22-29) mmol/L Anion Gap 11 L (12-20) BUN 13 (9-16) mg/dL Creatinine 0.70 (0.5-1.4) mg/dL Estim Creat Clear Calc 119.9 Estimated GFR > 60 Random Glucose 86 (60-115) mg/dL Calcium 9.5 (8.4-10.2) mg/dL Total Bilirubin 0.2 (0.0-1.0) mg/dL AST 17 (5-31) U/L ALT 14 (0-31) U/L Alkaline Phosphatase 85 (39-117) U/L Total Protein 7.6 (6.5-8.0) g/dL Albumin 4.3 (3.5-5.0) g/dL Lipase 19 (8-78) U/L Beta HCG, Quant < 2 mIU/mL Urine Color Yellow Urine Appearance Clear Urine pH 6.5 (5.0-9.0) Ur Specific [place] 1.025 (1.005-1.025) Urine Protein Negative (Neg-Trace) mg/dL Urine Glucose (UA) Negative (Negative) mg/dL Urine Ketones Negative (Negative) mg/dL Urine Blood Trace H (Negative) Urine Nitrite Negative (Negative) Ur Leukocyte Esterase Negative (Negative) Urine RBC 0-2 (0-2) /HPF Urine WBC 0-5 (0-5) /HPF Ur Squamous Epith Cells 3-5 (0-2) /HPF Urine Bacteria Trace (None Seen) Hyaline Casts 0-2 (0-2) /LPF Blood Type O Positive Antibody Screen NEGATIVE External Record Review External record reviewed: Other (Prior visit) Prescription Management I considered prescription management with: Pain Medication Discharge Plan Discharge Clinical Impression: Vaginal bleeding Patient Disposition: Elopement Prescriptions: No Action fluconazole [Diflucan] 150 mg tablet 150 mg PO Q3D Qty: 2 0RF clotrimazole 1 % cream 1 appl topical BID Qty: 45 0RF fluconazole [Diflucan] 150 mg tablet 150 mg PO Q3D Qty: 2 0RF metronidazole 500 mg tablet 500 mg PO BID 7 Days Qty: 14 0RF doxycycline hyclate 100 mg tablet 100 mg PO BID 7 Days Qty: 14 0RF famotidine 20 mg tablet 20 mg PO DAILY Qty: 7 0RF levetiracetam 500 mg tablet 500 mg PO BID Qty: 14 0RF Discharge Date/Time: 02/15/23 20:38
[2023-02-15 17:41] LABS: MANUAL DIFF FLAG NO
[2023-02-15 17:45] LABS: Appearance Urine Clear; Color Urine Yellow; Glucose Urine UA Negative (Negative); Leukocyte Esterase Urine Negative (Negative); Nitrite Urine Negative (Negative); PH 6.5 (5.0-9.0); Specific Gravity - Urine 1.025 (1.005-1.025); UMIC TRIGGER UACC YES; Urine Blood Trace (Negative); Urine Ketones Negative (Negative); Urine Protein Negative (Neg-Trace)
[2023-02-15 17:50] LABS: Basophils Percent Auto 0.4 % (0-2); Eosinophils Absolute Auto 0.1 X10*3/uL (0.0-0.4); Eosinophils Percent Auto 1.3 % (0-4); Hematocrit 39.5 % (37.0-47.0); Hemoglobin 12.9 g/dl (12.0-16.0); Imm Gran Abs Auto 0.01 X10*3/uL (0.00-0.03); Imm Gran Pct Auto 0.2 % (0.0-0.4); Lymphocytes Absolute Auto 1.9 X10*3/uL (1.2-4.9); Lymphocytes Percent Auto 34.5 % (20-40); Mean Corpuscular HGB Conc 32.7 g/dl (31.0-35.0); Mean Corpuscular Hemoglobin 27.7 pg (27.0-33.0); Mean Corpuscular Volume 84.9 fL (80.0-98.0); Mean Platelet Volume 12.2 fL (9.4-12.3); Monocytes Absolute Auto 0.5 X10*3/uL (0.1-1.2); Monocytes Percent Auto 8.6 % (2-11); Neutrophils Absolute Auto 3.1 x10*3/uL (2.0-8.3); Platelet Count 176 X10*3/uL (160-400); Red Blood Count 4.65 X10*6/uL (4.20-5.50); Red Cell Distribution Width 14.4 % (11.0-16.0); White Blood Count 5.6 X10*3/uL (4.8-10.8)
[2023-02-15 17:50] LABS: Bacteria Urine Trace (None Seen); Hyaline Casts Urine 0-2 /LPF (0-2); RBC Urine 0-2 /HPF (0-2); WBC Urine 0-5 /HPF (0-5)
[2023-02-15 18:00] VITALS: BP 141/77; PULSE 60; RESP 16; TEMP 36.3; O2SAT 100
[2023-02-15 18:15] LABS: Alanine Aminotransferase 14 U/L (0-31); Albumin Level 4.3 g/dL (3.5-5.0); Alkaline Phosphatase 85 U/L (39-117); Anion Gap 11 (12-20); Aspartate Amino Transferase 17 U/L (5-31); Bilirubin Total 0.2 mg/dL (0.0-1.0); Blood Urea Nitrogen 13 mg/dL (9-16); Calcium 9.5 mg/dL (8.4-10.2); Carbon Dioxide 27 mmol/L (22-29); Chloride 107 mmol/L (96-108); Creatinine Clr Calc Pharmacy 119.9; Estimated Glomerular Filt Rate > 60; Glucose Random 86 mg/dL (60-115); Lipase 19 U/L (8-78); Potassium 3.7 mmol/L (3.3-5.1); Sodium 141 mmol/L (135-145); Total Protein 7.6 g/dL (6.5-8.0)
[2023-02-15 18:18] LABS: HCG Quantitative < 2 mIU/mL
--- NOTE | 2023-02-15 18:48 | PC.NURSE ---
vss and up to date at this time. pt comes in today d/t vaginal spotting for the past 2 days. pt denies pain at this time. pt states that she took test at home around 1300 and it is unclear on if test is positive or not. pt states LMP was around 2 weeks ago. resting comfortably in no apaprent distress at this time.
--- NOTE | 2023-02-15 19:22 | PC.NURSE ---
pt was seen by ED provider Artur - pt refused to wait for d/c paperwork and left facility w/o signing forms.
== END 2023-02-15 20:38 | disposition left against medical advice (07) ==
PROVIDERS: Physician Assistant; Emergency Provider Internal Medicine
DX: N93.9 Abnormal uterine and vaginal bleeding, unspecified (principal); Z79.899 Other long term (current) drug therapy
CPT/HCPCS: 36415; 80053; 81001; 83690; 84702; 85025; 86850; 86900; 86901; 99283; 99284

== ENCOUNTER 2023-02-21 19:57 | Emergency (ER) | payer OTHER, SELFPAY ==
--- NOTE | ~2023-02-21 | US_ITS ---
EXAMINATION: US PELVIS CLINICAL INFORMATION: Pain. Unsure about exact date of LMP approximately end of January. COMPARISON: None available. TECHNIQUE: Ultrasound of the pelvis is performed using both transabdominal and transvaginal transducers along with Doppler. Transvaginal imaging is performed due to inadequate visualization transabdominally. FINDINGS: Uterus: The uterus is retroverted and measures 7.8 x 4.6 x 5.5 cm. The double wall endometrial thickness is 5 mm. The uterus is smooth in contour and has normal myometrial echogenicity. No visible fibroid. Adnexa: Both ovaries are visualized. There is normal color flow to the adnexa. There is no pelvic ascites or fluid collection. Right ovary measures 5.6 x 2.9 x 2.8 cm. Volume 24 mL. Left ovary measures 4 x 1.5 x 1.4 cm. Volume 4.4 mL. US/US pelvic and transvaginal IMPRESSION: Nonspecific asymmetric enlargement of the right ovary. There is preserved flow on color and spectral Doppler to both ovaries at the moment of this examination. Ovarian morphology is overall within normal limits. No significant inflammatory changes or free fluid. Recommend clinical correlation for ovarian torsion/detorsion and short-term follow-up pelvic ultrasound.
[2023-02-21 20:04] VITALS: BP 119/59; BP 136/74; PULSE 80; PULSE 96; RESP 18; TEMP 36.6; O2SAT 97; O2SAT 99; BMI 23.1
--- NOTE | 2023-02-21 20:07 | ED_ITS ---
HPI - General Adult General Chief complaint: Vaginal Bleeding Stated complaint: ABNORMAL VAGINAL BLEEDING, N/V, ? Time Seen by Provider: 02/21/23 22:30 Source: patient Mode of arrival: ambulatory Limitations: no limitations History of Present Illness HPI narrative: A 22-year-old female came in for evaluation of abdominal pain and intermittent vaginal spotting with nausea. Patient's symptoms started about a month ago, normal bowel movements no diarrhea, no blood in the stool. No dysuria, no frequency urination, no hematuria. Sexually active had a negative home test. Never had intra-abdominal surgical history. LMP was a month ago which patient defined it as usually irregular. Related Data Previous Rx's Medication Instructions Recorded clotrimazole 1 % topical cream 1 appl topical BID #45 grams 12/18/22 fluconazole 150 mg tablet 150 mg PO Q3D 2 doses #2 tabs 12/18/22 (Diflucan) doxycycline hyclate 100 mg tablet 100 mg PO BID 7 days #14 tabs 01/11/23 fluconazole 150 mg tablet 150 mg PO Q3D 2 doses #2 tabs 01/11/23 (Diflucan) metronidazole 500 mg tablet 500 mg PO BID 7 days #14 tabs 01/11/23 famotidine 20 mg tablet 20 mg PO DAILY #7 tabs 02/04/23 levetiracetam 500 mg tablet 500 mg PO BID #14 tabs 02/04/23 Allergies Allergy/AdvReac Type Severity Reaction Status Date / Time acetaminophen [From Tylenol] Allergy Hives Verified 02/04/23 19:31 Review of Systems 2 Review of Systems: all other systems are reviewed and are negative Constitutional: Reports as per HPI and Reports no additional constitutional complaints Eyes: Reports as per HPI and Reports no additional eye complaints Reports system reviewed and no additional complaints, except as documented Cardiovascular: Reports as per HPI and Reports no additional cardiovascular complaints Respiratory: Reports as per HPI and Reports no additional respiratory complaints Gastrointestinal: Reports as per HPI and Reports no additional gastrointestinal complaints Genitourinary: Reports no additional female genitourinary complaints Musculoskeletal: Reports no additional musculoskeletal complaints Skin/Breast: Reports system reviewed and no additional complaints, except as docu Psychiatric: Reports no additional psychiatric complaints Endocrine: Reports no additional endocrine complaints Hematologic/Lymphatic: Reports no additional hematologic/lymphatic complaints Allergic/Immunologic: Reports no additional allergic/immunologic complaints Reports system reviewed and no additional complaints, except as documented and Reports Abnormal speech present [facility] Social History Social History Advance Directives: No Advance Directives Information Provided: Yes Physical Exam ED Vital Signs: Vital Signs - 24 hr 02/21/23 20:04 Temperature 97.8 F Pulse Rate 80 Respiratory Rate 18 Blood Pressure 119/59 L Pulse Oximetry 99 Oxygen Delivery Method Room Air BMI result Body Mass Index 23.1 Vital signs have been reviewed and appear to be correct. Blood pressure elevated. Heart rate normal. Respiratory rate normal. Temperature normal. Oxygen saturation normal. Appearance: Alert. Oriented X3. No acute distress. Head: Normal external exam. Normocephalic. Atraumatic. No Bauer signs noted. No raccoon eyes noted Eyes: PERRLA. EOMI. Conjunctiva and sclera normal. Eyelids normal. ENT: TM's Normal. Pharynx normal. Uvula midline. Moist mucous membranes. No trismus noted. No drooling noted. No muffled voice noted. Neck: Normal inspection. Neck supple. FROM. No adenopathy. Thyroid Normal. No meningeal signs. No neck mass noted. CVS: Normal heart rate and rhythm. Heart sound normal. No murmurs noted. Pulses normal throughout. Respiratory: No respiratory distress. Painless inspiration. Breath sounds normal. No wheezes/rales/rhonchi noted. Chest nontender. No accessory muscle usage noted or decreased air movement noted. Abdomen: Soft and nontender. Bowel sounds normal in all 4 quadrants. No distention noted. No organomegaly noted. No visible injury noted. Pelvic exam: Deferred for the ultrasound. Back: No CVA tenderness. Full range of motion noted. Skin: Skin warm and dry. Normal skin color. Normal skin turgor. No rashes/lesions/lacerations noted. Extremities: No lower extremity edema. Extremities exhibit normal range of motion. Extremities nontender. Neuro: Oriented X 3. Cranial nerve exam: II-XII are grossly intact No motor deficit. No sensory deficit. Reflexes normal. Course Course Course Narrative: RME performed by Lisa Walter PA-C. Patient is a 22 year old assigned female at presenting to the emergency department with abnormal vaginal bleeding, nausea, vomiting, and concern for . Patient states that she was seen here 6 days ago and did not get an ultrasound done and now she wants an ultrasound done. Patient states that she wants answers as to why this is happening and doesn't understand why that wasn't done the first time. Labs ordered. Patient placed back in the waiting room pending room availability and results. Reevaluation(s) Reevaluation #1: 22-year-old female came in for intermittent pelvic pain and vaginal spotting. Was seen in the emergency department on 02/15/2023 with no remarkable findings. Patient today have an ultrasound which is unremarkable with the rest of the blood workup. The patient will need to follow up with OBGYN as an outpatient. Patient was provided Dr. Cortez's office information to contact and make an appointment with him. Time: 22:43 Medical Decision Making Differential Diagnosis Differential Diagnoses: The differential diagnosis associated with the presentation includes ( UTI, pyelonephritis, , severe anemia, pancreatitis, ovarian cyst, ovarian torsion, electrolyte abnormality, viral infection.) Admission/Observation Consideration of admission/observation: Escalation of care including admission/observation considered Lab Data MDM Lab Attestation statement: I reviewed the patient's lab results. 02/21/23 21:12 02/21/23 21:12 Labs: Lab Results 02/21/23 Range/Units 21:12 WBC 6.3 (4.8-10.8) X10*3/uL RBC 4.85 (4.20-5.50) X10*6/uL Hgb 13.1 (12.0-16.0) g/dl Hct 39.8 (37.0-47.0) % MCV 82.1 (80.0-98.0) fL MCH 27.0 (27.0-33.0) pg MCHC 32.9 (31.0-35.0) g/dl RDW 13.4 (11.0-16.0) % Plt Count 224 D (160-400) X10*3/uL MPV 11.2 (9.4-12.3) fL Immature Gran % (Auto) 0.2 (0.0-0.4) % Neut % (Auto) 51.7 (45-73) % Lymph % (Auto) 40.4 H (20-40) % [place] % (Auto) 6.1 (2-11) % Eos % (Auto) 1.1 (0-4) % Baso % (Auto) 0.5 (0-2) % Lymph # (Auto) 2.5 (1.2-4.9) X10*3/uL [place] # (Auto) 0.4 (0.1-1.2) X10*3/uL Eos # (Auto) 0.1 (0.0-0.4) X10*3/uL Baso # (Auto) 0.0 (0.0-0.2) X10*3/uL Abs Immat Gran (auto) 0.01 (0.00-0.03) X10*3/uL Absolute Neuts (auto) 3.2 (2.0-8.3) x10*3/uL Absolute Nucleated RBC 0.000 (0.0-0.012) X10*3/uL Nucleated RBC % (auto) 0.0 (0.0-0.2) /100WBC Sodium 138 (135-145) mmol/L Potassium 3.9 (3.3-5.1) mmol/L Chloride 105 (96-108) mmol/L Carbon Dioxide 24 (22-29) mmol/L Anion Gap 13 (12-20) BUN 11 (9-16) mg/dL Creatinine 0.67 (0.5-1.4) mg/dL Estim Creat Clear Calc 125.4 Estimated GFR > 60 Random Glucose 97 (60-115) mg/dL Calcium 9.4 (8.4-10.2) mg/dL Magnesium 2.0 (1.6-2.6) mg/dL Total Bilirubin 0.3 (0.0-1.0) mg/dL AST 18 (5-31) U/L ALT 12 (0-31) U/L Alkaline Phosphatase 69 (39-117) U/L Total Protein 7.5 (6.5-8.0) g/dL Albumin 4.3 (3.5-5.0) g/dL Beta HCG, Quant < 2 mIU/mL Influenza Type A (PCR) NEGATIVE (Negative) Influenza Type B (PCR) NEGATIVE (Negative) RSV RNA Qual (PCR) NEGATIVE (Negative) SARS-CoV-2 RNA (RT-PCR) NEGATIVE (Negative) Discharge Plan Discharge Clinical Impression: Dysfunctional uterine bleeding Patient Disposition: Home, Self-Care Instructions: Dysfunctional Uterine Bleeding (ED) Prescriptions: No Action fluconazole [Diflucan] 150 mg tablet 150 mg PO Q3D Qty: 2 0RF clotrimazole 1 % cream 1 appl topical BID Qty: 45 0RF fluconazole [Diflucan] 150 mg tablet 150 mg PO Q3D Qty: 2 0RF metronidazole 500 mg tablet 500 mg PO BID 7 Days Qty: 14 0RF doxycycline hyclate 100 mg tablet 100 mg PO BID 7 Days Qty: 14 0RF famotidine 20 mg tablet 20 mg PO DAILY Qty: 7 0RF levetiracetam 500 mg tablet 500 mg PO BID Qty: 14 0RF Referrals: Omar Cortez MD [Physician] -
[2023-02-21 21:20] LABS: MANUAL DIFF FLAG NO
[2023-02-21 21:29] LABS: Basophils Percent Auto 0.5 % (0-2); Eosinophils Absolute Auto 0.1 X10*3/uL (0.0-0.4); Eosinophils Percent Auto 1.1 % (0-4); Hematocrit 39.8 % (37.0-47.0); Hemoglobin 13.1 g/dl (12.0-16.0); Imm Gran Abs Auto 0.01 X10*3/uL (0.00-0.03); Imm Gran Pct Auto 0.2 % (0.0-0.4); Lymphocytes Absolute Auto 2.5 X10*3/uL (1.2-4.9); Lymphocytes Percent Auto 40.4 % (20-40); Mean Corpuscular HGB Conc 32.9 g/dl (31.0-35.0); Mean Corpuscular Volume 82.1 fL (80.0-98.0); Mean Platelet Volume 11.2 fL (9.4-12.3); Monocytes Absolute Auto 0.4 X10*3/uL (0.1-1.2); Monocytes Percent Auto 6.1 % (2-11); Neutrophils Absolute Auto 3.2 x10*3/uL (2.0-8.3); Neutrophils Percent Auto 51.7 % (45-73); Platelet Count 224 X10*3/uL (160-400); Red Blood Count 4.85 X10*6/uL (4.20-5.50); Red Cell Distribution Width 13.4 % (11.0-16.0); White Blood Count 6.3 X10*3/uL (4.8-10.8)
[2023-02-21 21:41] LABS: Alanine Aminotransferase 12 U/L (0-31); Albumin Level 4.3 g/dL (3.5-5.0); Alkaline Phosphatase 69 U/L (39-117); Anion Gap 13 (12-20); Aspartate Amino Transferase 18 U/L (5-31); Bilirubin Total 0.3 mg/dL (0.0-1.0); Blood Urea Nitrogen 11 mg/dL (9-16); Calcium 9.4 mg/dL (8.4-10.2); Carbon Dioxide 24 mmol/L (22-29); Chloride 105 mmol/L (96-108); Creatinine Clr Calc Pharmacy 125.4; Estimated Glomerular Filt Rate > 60; Glucose Random 97 mg/dL (60-115); Potassium 3.9 mmol/L (3.3-5.1); Sodium 138 mmol/L (135-145); Total Protein 7.5 g/dL (6.5-8.0)
[2023-02-21 21:46] LABS: HCG Quantitative < 2 mIU/mL
[2023-02-21 21:58] LABS: Influenza A PCR NEGATIVE (Negative); Influenza B PCR NEGATIVE (Negative); Resp Syncy Virus RNA Qual PCR NEGATIVE (Negative); SARS COV2 PCR INHOUSE NEGATIVE (Negative)
== END 2023-02-21 23:15 | disposition home or self-care (01) ==
PROVIDERS: Physician Assistant Medical; Emergency Provider Emergency Medicine
DX: N93.8 Other specified abnormal uterine and vaginal bleeding (principal); Z20.822 Contact with and (suspected) exposure to COVID-19; Z20.828 Contact with and (suspected) exposure to other viral communicable diseases
CPT/HCPCS: 0241U; 76830; 76856; 80053; 83735; 84702; 85025; 99282; 99284

== ENCOUNTER 2023-04-13 11:19 | Emergency (ER) | payer OTHER, SELFPAY ==
[2023-04-13 12:40] VITALS: BP 118/66; PULSE 73; RESP 18; TEMP 36.7; O2SAT 97; BMI 24.3
== END 2023-04-13 19:42 | disposition left against medical advice (07) ==
PROVIDERS: Emergency Provider Emergency Medicine
DX: Z32.00 Encounter for pregnancy test, result unknown (principal); Z53.21 Procedure and treatment not carried out due to patient leaving prior to being seen by health care provider
CPT/HCPCS: 99281

== ENCOUNTER 2023-06-28 13:35 | Emergency (ER) | payer MEDICAID, SELFPAY | END 2023-06-28 15:42 | disposition left against medical advice (07) | LOC: HO.ED 15:34 | PROVIDERS: Emergency Provider Emergency Medicine | DX: Z53.21 Procedure and treatment not carried out due to patient leaving prior to being seen by health care provider (principal); N64.4 Mastodynia ==

== ENCOUNTER 2023-07-02 10:56 | Outpatient (REF) | payer MEDICAID, SELFPAY ==
[2023-07-02 12:51] LABS: HCG Quantitative 3920 mIU/mL
== END 2023-07-02 10:57 | disposition home or self-care (01) ==
LOC: HO.HHCL 10:56
PROVIDERS: Visit Provider Internal Medicine
DX: Z32.01 Encounter for pregnancy test, result positive (principal); Z3A.01 Less than 8 weeks gestation of pregnancy
CPT/HCPCS: 36415; 84702

== ENCOUNTER 2023-07-02 14:38 | Emergency (ER) | payer MEDICAID, SELFPAY | END 2023-07-02 15:34 | disposition left against medical advice (07) | PROVIDERS: Emergency Provider Emergency Medicine | DX: R10.9 Unspecified abdominal pain (principal) ==

== ENCOUNTER 2023-07-04 09:22 | Emergency (ER) | payer MEDICAID, SELFPAY ==
--- NOTE | ~2023-07-04 | US_ITS ---
EXAMINATION: US OBSTETRICAL ULTRASOUND CLINICAL INFORMATION: Abdominal pain 6 weeks , hCG 3920 COMPARISON: Pelvic ultrasound from 02/21/2023. LMP: Unknown. Gestational age by maternal dates is N/A. Estimated date of delivery by maternal dates is N/A. TECHNIQUE: Transabdominal and transvaginal images of the pelvis FINDINGS: There is a single intrauterine gestational sac with visible yolk sac, embryo/fetus, and cardiac activity. There is no significant subchorionic hemorrhage or hematoma. HR: 117 beats per minute. CRL (crown-rump length): 0.36 cm (6 weeks 1 day +/- 4 days). SOFIYA (estimated date of delivery): 02/26/2024 +/- 4 days. MATERNAL ADNEXA: The right maternal ovary measures 4.6 x 2.4 x 3.0 cm. The left maternal ovary measures 2.0 x 1.9 x 1.8 cm. There is no significant maternal adnexal mass. No maternal pelvic ascites. US/US OB transvaginal IMPRESSION: 1. Single intrauterine gestation with ultrasound gestational age of 6 weeks 1 day +/- 4 days. 2. Estimated date of delivery is 02/26/2024 +/- 4 days. 3. No maternal adnexal mass or pelvic ascites.
--- NOTE | ~2023-07-04 | US_ITS ---
EXAMINATION: US ABDOMEN LIMITED CLINICAL INFORMATION: Epigastric right upper quadrant and left upper quadrant pain. COMPARISON: None available. TECHNIQUE: Real-time imaging of the right upper quadrant abdominal viscera. FINDINGS: PANCREAS: Normal. LIVER: Normal. The liver is normal in size. The liver contour is normal. Parenchymal echogenicity is normal. No focal hepatic lesion. There is no intrahepatic biliary duct dilatation seen. GALLBLADDER: Normal. The gallbladder is physiologically distended without evidence of stones, sludge, polyps, wall thickening or pericholecystic fluid. COMMON BILE DUCT: Normal in caliber measuring 0.2 cm in diameter. RIGHT KIDNEY: Normal. No hydronephrosis. No renal calculi or focal parenchymal lesions. The kidney measures 13.3 cm in maximum dimension. FREE FLUID: None. US/US abdomen limited IMPRESSION: Unremarkable right upper quadrant ultrasound.
--- NOTE | 2023-07-04 09:24 | ED_ITS ---
HPI - General Adult General Chief complaint: Abdominal Pain Stated complaint: BODY ACHES Time Seen by Provider: 07/04/23 09:24 Source: patient and EMS Mode of arrival: EMS Limitations: no limitations History of Present Illness HPI narrative: Patient is a 23 year old assigned female at with no reported medical history presenting to the emergency department today with her young son, for abdominal pain, nausea, and vomiting. Patient states that she is currently 6 weeks and has been having intermittent abdominal pain, nausea, and vomiting. Patient states that she has been to multiple emergency departments but the waits were either too long or they didn't tell her what was wrong. Patient denies any dizziness, lightheadedness, vaginal bleeding, vaginal discharge, fever, chills, blurry vision, double vision, loss of vision, chest pain, difficulty breathing, shortness of breath, back pain, night sweats, pain with urination, increased urinary frequency, increased urinary urgency, blood in her urine or stool, syncope or a near syncopal episode, recent trauma or falls, bowel incontinence, bladder incontinence, bowel retention, bladder retention, or any other complaints at this time. Onset (ago): day(s) Location: abdomen Severity: mild Severity scale (1-10): 4 Quality: aching Pain Consistency: intermittent Relieving factors: none Exacerbating factors: none Associated symptoms: nausea/vomiting Treatments prior to arrival: none Related Data Previous Rx's Medication Instructions Recorded clotrimazole 1 % topical cream 1 appl topical BID #45 grams 12/18/22 fluconazole 150 mg tablet 150 mg PO Q3D 2 doses #2 tabs 12/18/22 (Diflucan) doxycycline hyclate 100 mg tablet 100 mg PO BID 7 days #14 tabs 01/11/23 fluconazole 150 mg tablet 150 mg PO Q3D 2 doses #2 tabs 01/11/23 (Diflucan) metronidazole 500 mg tablet 500 mg PO BID 7 days #14 tabs 01/11/23 famotidine 20 mg tablet 20 mg PO DAILY #7 tabs 02/04/23 levetiracetam 500 mg tablet 500 mg PO BID #14 tabs 02/04/23 Allergies Allergy/AdvReac Type Severity Reaction Status Date / Time acetaminophen [From Tylenol] Allergy Hives Verified 07/04/23 09:37 Review of Systems 2 Constitutional: Constitutional: Reports no additional constitutional complaints, Denies chills, Denies fever(s) and Denies night sweats Eyes: Eyes: Reports no additional eye complaints, Denies blurry vision, Denies change in vision, Denies diplopia, Denies eye discharge, Denies loss of vision and Denies eye pain ENT: Denies dizziness Cardiovascular: Cardiovascular: Reports no additional cardiovascular complaints, Denies chest pain, Denies lightheadedness, Denies Loss of Consciousness and Denies dyspnea Respiratory: Respiratory: Reports no additional respiratory complaints and Denies dyspnea Gastrointestinal: Gastrointestinal: Reports no additional gastrointestinal complaints, Reports abdominal pain (intermittent), Denies melena, Denies hematochezia, Denies change in bowel habits, Denies change in stool character, Reports nausea and Reports vomiting Genitourinary: Genitourinary: Denies hematuria, Denies urinary frequency, Denies dysuria, Denies urinary incontinence, Denies urinary hesitancy and Denies urinary urgency Musculoskeletal: Musculoskeletal: Reports no additional musculoskeletal complaints, Denies numbness and Denies tingling Neurologic: Denies dizziness, Denies loss of vision, Denies numbness and Denies tingling Psychiatric: Psychiatric: Reports no additional psychiatric complaints Endocrine: Endocrine: Reports no additional endocrine complaints Hematologic/Lymphatic: Hematologic/Lymphatic: Reports no additional hematologic/lymphatic complaints Allergic/Immunologic: Allergic/Immunologic: Reports no additional allergic/immunologic complaints [facility] Past Medical History Attestation statement: The following information was validated with the patient. Source: old records reviewed and nursing notes reviewed Social History Social History Advance Directives: No Advance Directives Information Provided: Yes Physical Exam ED Vital Signs: Vital Signs - 24 hr 07/04/23 09:33 Temperature 98.9 F Pulse Rate 84 Respiratory Rate 20 Blood Pressure 121/36 L Pulse Oximetry 98 Oxygen Delivery Method Room Air BMI result Body Mass Index 23.4 Const General: cooperative, no acute distress, alert and awake Nutritional Appearance: well nourished Orientation/consciousness: patient oriented x3 Limitations: no limitations HENMT Head: Yes normal to inspection and Yes atraumatic Ears: hearing grossly normal bilaterally and external ears normal General nose exam: Normal external nose present, no nasal discharge noted and no epistaxis Face and sinus: Yes normal facial exam, No abrasion and No laceration Mouth: Normal oral and palatal mucosa present, no drooling and no muffled voice Eyes General: appearance normal, both eyes and all related structures Periorbital: periorbital findings normal Eyelids: Yes eyelids normal Conjunctivae: conjunctivae normal Pupils: Equal, round and reactive pupils present EOM: EOMs intact bilaterally Neck Neck: Yes normal visual inspection, Yes full ROM and Yes no lymphadenopathy Chest Chest palpation & inspection: normal inspection of the chest Resp Effort & Inspection: normal respiratory effort and able to speak in complete sentences GI Inspection: Yes normal to inspection Palpation (GI): Soft to palpation, not firm, nontender and no guarding Neuro General: patient oriented x3 and moves all extremities Cranial nerves: Yes Equal, round and reactive pupils present Cognition (Neuro): normal cognition Motor exam (neuro): 5/5 motor strength present throughout Sensory Exam: Normal double simultaneous stimulation for sensation Coordination: [id number] test normal Extrem General: Yes normal to inspection, Yes full ROM and Yes capillary refill normal Psych Appearance: grossly normal Mental Status: mental status grossly normal Affect: normal affect Attitude: cooperative Thought process: Normal thought process present Thought content: Normal thought content present Insight: Good insight present (Psych) Medications Administered Discontinued Medications Generic Name Dose Route Start Last Admin Trade Name Freq PRN Reason Stop Dose Admin Pantoprazole Sodium 40 mg 07/04/23 09:39 07/04/23 11:21 Pantoprazole Sodium 40 Mg/10 Ml Vial IVPUSH 07/04/23 09:40 40 mg ONCE ONE Administration Sucralfate 1 gm 07/04/23 09:39 07/04/23 11:21 Sucralfate Oral Suspension 1 Gm/10 Ml Oral.Susp PO 07/04/23 09:40 1 gm ONCE ONE Administration Medical Decision Making Medical Decision Making [facility] Narrative: Patient is a 23 year old assigned female at with no reported medical history presenting to the emergency department today with epigastric pain and abdominal pain while being 6 weeks . Patient's physical exam was unremarkable. Patient's blood work was unremarkable. Patient's urine showed no acute process. Patient's abdominal and OB US showed no acute process and a normally advancing fetus. I explained my physical exam findings as well as all test results to the patient. I answered all questions asked by the patient. I stressed the importance of the patient taking her medication as prescribed. I stressed the importance of the patient following up with her primary care provider, an OBGYN, and a GI specialist. I stressed the importance of the patient returning to the emergency department immediately if her symptoms were to worsen or if she were to develop any dizziness, shortness of breath, difficulty breathing, chest pain, blurry vision, loss of vision, nausea, vomiting, abdominal pain, fever, chills, back pain, or any other complaints. Patient verbalized agreement and understanding with this treatment plan and discharge. Differential Diagnosis Differential Diagnoses: The differential diagnosis associated with the presentation includes Epigastric pain GERD Abdominal pain Admission/Observation Consideration of admission/observation: Escalation of care including admission/observation considered Patient would have been admitted to the hospital had her work up had any findings where hospital admission was appropriate and her clinical presentation warranted hospital admission. Lab Data [facility] Lab Attestation statement: I reviewed the patient's lab results. My interpretation of these results are in the [facility] Rationale portion of this note. 07/04/23 11:14 07/04/23 11:14 Labs: Lab Results 07/04/23 07/04/23 07/04/23 Range/Units 11:14 11:18 11:59 WBC 5.1 (4.8-10.8) X10*3/uL RBC 4.65 (4.20-5.50) X10*6/uL Hgb 13.6 (12.0-16.0) g/dl Hct 40.2 (37.0-47.0) % MCV 86.5 (80.0-98.0) fL MCH 29.2 (27.0-33.0) pg MCHC 33.8 (31.0-35.0) g/dl RDW 12.6 (11.0-16.0) % Plt Count 181 (160-400) X10*3/uL MPV 11.9 (9.4-12.3) fL Immature Gran % (Auto) 0.2 (0.0-0.4) % Neut % (Auto) 49.0 (45-73) % Lymph % (Auto) 42.5 H (20-40) % [place] % (Auto) 7.1 (2-11) % Eos % (Auto) 0.8 (0-4) % Baso % (Auto) 0.4 (0-2) % Lymph # (Auto) 2.2 (1.2-4.9) X10*3/uL [place] # (Auto) 0.4 (0.1-1.2) X10*3/uL Eos # (Auto) 0.0 (0.0-0.4) X10*3/uL Baso # (Auto) 0.0 (0.0-0.2) X10*3/uL Abs Immat Gran (auto) 0.01 (0.00-0.03) X10*3/uL Absolute Neuts (auto) 2.5 (2.0-8.3) x10*3/uL Absolute Nucleated RBC 0.000 (0.0-0.012) X10*3/uL Nucleated RBC % (auto) 0.0 (0.0-0.2) /100WBC Sodium 139 (135-145) mmol/L Potassium 3.7 (3.3-5.1) mmol/L Chloride 107 (96-108) mmol/L Carbon Dioxide 23 (22-29) mmol/L Anion Gap 13 (12-20) BUN 10 (9-16) mg/dL Creatinine 0.65 (0.5-1.4) mg/dL Estim Creat Clear Calc 128.1 Estimated GFR > 60 Random Glucose 74 (60-115) mg/dL Calcium 9.7 (8.4-10.2) mg/dL Magnesium 1.8 (1.6-2.6) mg/dL Total Bilirubin 0.6 (0.0-1.0) mg/dL AST 21 (5-31) U/L ALT 16 (0-31) U/L Alkaline Phosphatase 74 (39-117) U/L Total Protein 8.3 H (6.5-8.0) g/dL Albumin 4.6 (3.5-5.0) g/dL Beta HCG, Quant 6094 mIU/mL Urine Color Yellow Urine Appearance Clear Urine pH 7.5 (5.0-9.0) Ur Specific [place] 1.020 (1.005-1.025) Urine Protein Negative (Neg-Trace) mg/dL Urine Glucose (UA) Negative (Negative) mg/dL Urine Ketones Negative (Negative) mg/dL Urine Blood Negative (Negative) Urine Nitrite Negative (Negative) Ur Leukocyte Esterase Negative (Negative) Influenza Type A (PCR) NEGATIVE (Negative) Influenza Type B (PCR) NEGATIVE (Negative) RSV RNA Qual (PCR) NEGATIVE (Negative) SARS-CoV-2 RNA (RT-PCR) NEGATIVE (Negative) S. pyogenes GrpA DAPHNEY Negative (Negative) Independent Interpretation I performed an independent interpretation of an: Ultrasound Interpretation: My interpretation is in agreement with the radiologist's impression of these imaging studies. - EXAMINATION: US OBSTETRICAL ULTRASOUND CLINICAL INFORMATION: Abdominal pain 6 weeks , hCG 3920 COMPARISON: Pelvic ultrasound from 02/21/2023. LMP: Unknown. Gestational age by maternal dates is N/A. Estimated date of delivery by maternal dates is N/A. TECHNIQUE: Transabdominal and transvaginal images of the pelvis FINDINGS: There is a single intrauterine gestational sac with visible yolk sac, embryo/fetus, and cardiac activity. There is no significant subchorionic hemorrhage or hematoma. HR: 117 beats per minute. CRL (crown-rump length): 0.36 cm (6 weeks 1 day +/- 4 days). SOFIYA (estimated date of delivery): 02/26/2024 +/- 4 days. MATERNAL ADNEXA: The right maternal ovary measures 4.6 x 2.4 x 3.0 cm. The left maternal ovary measures 2.0 x 1.9 x 1.8 cm. There is no significant maternal adnexal mass. No maternal pelvic ascites. US/US OB transvaginal IMPRESSION: 1. Single intrauterine gestation with ultrasound gestational age of 6 weeks 1 day +/- 4 days. 2. Estimated date of delivery is 02/26/2024 +/- 4 days. 3. No maternal adnexal mass or pelvic ascites. Dictated By: Tricia Murrell MD Signed By: Electronically signed by Tricia Murrell MD 07/04/23 1145 - EXAMINATION: US ABDOMEN LIMITED CLINICAL INFORMATION: Epigastric right upper quadrant and left upper quadrant pain. COMPARISON: None available. TECHNIQUE: Real-time imaging of the right upper quadrant abdominal viscera. FINDINGS: PANCREAS: Normal. LIVER: Normal. The liver is normal in size. The liver contour is normal. Parenchymal echogenicity is normal. No focal hepatic lesion. There is no intrahepatic biliary duct dilatation seen. GALLBLADDER: Normal. The gallbladder is physiologically distended without evidence of stones, sludge, polyps, wall thickening or pericholecystic fluid. COMMON BILE DUCT: Normal in caliber measuring 0.2 cm in diameter. RIGHT KIDNEY: Normal. No hydronephrosis. No renal calculi or focal parenchymal lesions. The kidney measures 13.3 cm in maximum dimension. FREE FLUID: None. US/US abdomen limited IMPRESSION: Unremarkable right upper quadrant ultrasound. Dictated By: Tricia Murrell MD Signed By: Electronically signed by Tricia Murrell MD 07/04/23 1147 Radiology Impression Discussion of test interpretation with radiology: I have reviewed the radiologist's reading. Independent Historian Clinical information obtained from an independent historian. History obtained from or confirmed by: EMS (EMS provided additional history and confirmed the history provided by the patient.) Critical Care Time Critical Care Time Critical Care Time: Yes Total Critical Care Time: 55 Attestation: I spent 55 minutes of Critical Care Time with this patient. This does not include time spent on separately reported billable procedures. Discharge Plan Discharge Clinical Impression: Acute epigastric pain Patient Disposition: Home, Self-Care Instructions: Abdominal Pain (ED), Epigastric Pain (ED) Additional Instructions: Your labs are very reassuring with a correctly increasing HCG. Your ultrasound showed no abnormalities and an appropriately growing fetus. Follow up with your primary care provider, an OBGYN, and a GI specialist. Return to the emergency department immediately if your symptoms worsen or if you develop any dizziness, shortness of breath, difficulty breathing, chest pain, blurry vision, loss of vision, nausea, vomiting, abdominal pain, fever, chills, back pain, or any other complaints. Prescriptions: No Action fluconazole [Diflucan] 150 mg tablet 150 mg PO Q3D Qty: 2 0RF clotrimazole 1 % cream 1 appl topical BID Qty: 45 0RF fluconazole [Diflucan] 150 mg tablet 150 mg PO Q3D Qty: 2 0RF metronidazole 500 mg tablet 500 mg PO BID 7 Days Qty: 14 0RF doxycycline hyclate 100 mg tablet 100 mg PO BID 7 Days Qty: 14 0RF famotidine 20 mg tablet 20 mg PO DAILY Qty: 7 0RF levetiracetam 500 mg tablet 500 mg PO BID Qty: 14 0RF Ref[place]: [facility] [place] [facility] [place] Group] (Call to establish and follow up with a GI specailist. ) [facility] [place] [facility] [Provider Group] (Call to establish and follow up with a primary care provider. If you already have a primary care provider, please follow up with them.) [facility] [place] [facility] [Provider Group] (Call to establish and follow up with a primary care provider. If you already have a primary care provider, please follow up with them.) [facility] [place] [facility],Sina [Provider Group] (Call to establish and follow up with a primary care provider. If you already have a primary care provider, please follow up with them.) Omar Cortez MD [Physician] - (Call to establish and follow up with an OBGYN. If you already have an OBGYN, please follow up with them.) Stand Alone Forms: Work/School Release Print Language: Malaysian
[2023-07-04 09:33] VITALS: BP 121/36; BP 126/72; PULSE 84; PULSE 92; RESP 20; TEMP 37.2; O2SAT 98; BMI 23.4
[2023-07-04 11:17] LABS: MANUAL DIFF FLAG NO
[2023-07-04] MEDS: Pantoprazole Sodium 40 MG/10 ML VIAL IVPUSH (11:21)
[2023-07-04] MEDS: Sucralfate Oral Suspension 1 GM/10 ML ORAL.SUSP PO (11:21)
[2023-07-04 11:33] LABS: Basophils Percent Auto 0.4 % (0-2); Eosinophils Percent Auto 0.8 % (0-4); Hematocrit 40.2 % (37.0-47.0); Hemoglobin 13.6 g/dl (12.0-16.0); Imm Gran Abs Auto 0.01 X10*3/uL (0.00-0.03); Imm Gran Pct Auto 0.2 % (0.0-0.4); Lymphocytes Absolute Auto 2.2 X10*3/uL (1.2-4.9); Lymphocytes Percent Auto 42.5 % (20-40); Mean Corpuscular HGB Conc 33.8 g/dl (31.0-35.0); Mean Corpuscular Hemoglobin 29.2 pg (27.0-33.0); Mean Corpuscular Volume 86.5 fL (80.0-98.0); Mean Platelet Volume 11.9 fL (9.4-12.3); Monocytes Absolute Auto 0.4 X10*3/uL (0.1-1.2); Monocytes Percent Auto 7.1 % (2-11); Neutrophils Absolute Auto 2.5 x10*3/uL (2.0-8.3); Platelet Count 181 X10*3/uL (160-400); Red Blood Count 4.65 X10*6/uL (4.20-5.50); Red Cell Distribution Width 12.6 % (11.0-16.0); White Blood Count 5.1 X10*3/uL (4.8-10.8)
[2023-07-04 11:39] LABS: HCG Quantitative 6094 mIU/mL
[2023-07-04 11:40] LABS: Alanine Aminotransferase 16 U/L (0-31); Albumin Level 4.6 g/dL (3.5-5.0); Alkaline Phosphatase 74 U/L (39-117); Anion Gap 13 (12-20); Aspartate Amino Transferase 21 U/L (5-31); Bilirubin Total 0.6 mg/dL (0.0-1.0); Blood Urea Nitrogen 10 mg/dL (9-16); Calcium 9.7 mg/dL (8.4-10.2); Carbon Dioxide 23 mmol/L (22-29); Chloride 107 mmol/L (96-108); Creatinine Clr Calc Pharmacy 128.1; Estimated Glomerular Filt Rate > 60; Glucose Random 74 mg/dL (60-115); Magnesium 1.8 mg/dL (1.6-2.6); Potassium 3.7 mmol/L (3.3-5.1); Sodium 139 mmol/L (135-145); Total Protein 8.3 g/dL (6.5-8.0)
[2023-07-04 11:50] LABS: IDNOW Serial# 08D9AD1C; Strep A Nucleic Acid Negative (Negative)
[2023-07-04 12:02] LABS: Influenza A PCR NEGATIVE (Negative); Influenza B PCR NEGATIVE (Negative); Resp Syncy Virus RNA Qual PCR NEGATIVE (Negative); SARS COV2 PCR INHOUSE NEGATIVE (Negative)
[2023-07-04 12:11] LABS: Appearance Urine Clear; Color Urine Yellow; Glucose Urine UA Negative (Negative); Leukocyte Esterase Urine Negative (Negative); Nitrite Urine Negative (Negative); PH 7.5 (5.0-9.0); Urine Blood Negative (Negative); Urine Ketones Negative (Negative); Urine Protein Negative (Neg-Trace)
[2023-07-04 12:26] VITALS: BP 121/43; PULSE 70; RESP 18; TEMP 37; O2SAT 99
== END 2023-07-04 12:27 | disposition home or self-care (01) ==
PROVIDERS: Physician Assistant Medical; Emergency Provider Emergency Medicine
DX: O26.891 Other specified pregnancy related conditions, first trimester (principal); R10.13 Epigastric pain; R11.2 Nausea with vomiting, unspecified; Z3A.01 Less than 8 weeks gestation of pregnancy; Z11.52 Encounter for screening for COVID-19; Z20.828 Contact with and (suspected) exposure to other viral communicable diseases
CPT/HCPCS: 0241U; 36415; 76705; 76817; 80053; 81003; 83735; 84702; 85025; 87651; 96374; 99283; 99284; C9113

== ENCOUNTER 2023-07-23 19:24 | Outpatient (REF) | payer MEDICAID, SELFPAY ==
[2023-07-24 02:42] LABS: CT PCR NOT DETECTED (Not Detect.); NG PCR NOT DETECTED (Not Detect.)
[2023-07-24 13:20] LABS: BV Int Neg Control Negative (Negative); BV Int Pos Control Positive (Positive)
== END 2023-07-23 19:25 | disposition home or self-care (01) ==
LOC: HO.HHCLNP 19:24
PROVIDERS: Visit Provider Family Medicine
DX: N89.8 Other specified noninflammatory disorders of vagina (principal)
CPT/HCPCS: 0353U; 87480; 87510; 87660

== ENCOUNTER 2023-08-09 14:18 | Outpatient (REF) | payer MEDICAID, SELFPAY | END 2023-08-09 14:19 | disposition home or self-care (01) | LOC: HO.HHCL 14:18 | PROVIDERS: Visit Provider Internal Medicine | DX: Z34.91 Encounter for supervision of normal pregnancy, unspecified, first trimester (principal) | CPT/HCPCS: 36415; 84702 ==

== ENCOUNTER 2023-08-10 17:17 | Emergency (ER) | payer MEDICAID, SELFPAY ==
[2023-08-10 17:24] VITALS: BP 123/63; PULSE 64; O2SAT 99
[2023-08-10 17:59] VITALS: BP 125/67; PULSE 100; RESP 20; TEMP 37; O2SAT 99; BMI 24.2
[2023-08-10] MEDS: Ondansetron ODT 4 MG TAB.RAPDIS TRANSLINGU (18:12)
--- NOTE | 2023-08-10 18:13 | PC.NURSE ---
pt medicated according to mar in triage.
--- NOTE | 2023-08-10 18:17 | ED.GENADULT ---
HPI - General Adult General Chief complaint: General Medical Stated complaint: accidentally took tylenol, has tylenol allergy Related Data Previous Rx's ?Medication ?Instructions ?Recorded clotrimazole 1 % topical cream 1 appl topical BID #45 grams 12/18/22 fluconazole 150 mg tablet 150 mg PO Q3D 2 doses #2 tabs 12/18/22 (Diflucan) doxycycline hyclate 100 mg tablet 100 mg PO BID 7 days #14 tabs 01/11/23 fluconazole 150 mg tablet 150 mg PO Q3D 2 doses #2 tabs 01/11/23 (Diflucan) metronidazole 500 mg tablet 500 mg PO BID 7 days #14 tabs 01/11/23 famotidine 20 mg tablet 20 mg PO DAILY #7 tabs 02/04/23 levetiracetam 500 mg tablet 500 mg PO BID #14 tabs 02/04/23 Allergies Allergy/AdvReac Type Severity Reaction Status Date / Time acetaminophen [From Tylenol] Allergy Hives Verified 08/10/23 18:04 [facility] Social History Social History Advance Directives: No Advance Directives Information Provided: No Do you have a plan to hurt others: No Plan Physical Exam ED Vital Signs: Vital Signs - 24 hr 08/10/23 17:59 Temperature 98.6 F Pulse Rate 100 Respiratory Rate 20 Blood Pressure 125/67 Pulse Oximetry 99 Oxygen Delivery Method Room Air BMI result Body Mass Index 24.2 Course Course Course Narrative: This is a rapid medical exam completed by Garret PROCUREMENT OFFICER: Additional HPI, ROS, PE not included below will be deferred to primary provider. Concerned that she took Tylenol when she is allergic to tylenol. Denies rash, itching, shortness of breath, or angioedema. 12 wks Medications Administered Discontinued Medications Generic Name Dose Route Start Last Admin Trade Name Freq PRN Reason Stop Dose Admin Ondansetron HCl 4 mg 08/10/23 18:09 08/10/23 18:12 Ondansetron Odt 4 Mg Tab.Rapdis TRANSLINGU 08/10/23 18:10 4 mg ONCE ONE Administration Discharge Plan Discharge Clinical Impression: Left before treatment completed Patient Disposition: Left W/O Completing Treatment Prescriptions: No Action fluconazole [Diflucan] 150 mg tablet 150 mg PO Q3D Qty: 2 0RF clotrimazole 1 % cream 1 appl topical BID Qty: 45 0RF fluconazole [Diflucan] 150 mg tablet 150 mg PO Q3D Qty: 2 0RF metronidazole 500 mg tablet 500 mg PO BID 7 Days Qty: 14 0RF doxycycline hyclate 100 mg tablet 100 mg PO BID 7 Days Qty: 14 0RF famotidine 20 mg tablet 20 mg PO DAILY Qty: 7 0RF levetiracetam 500 mg tablet 500 mg PO BID Qty: 14 0RF Discharge Date/Time: 08/10/23 19:56
--- NOTE | 2023-08-10 18:32 | MHC.EDTECH ---
Patient walked out and staff watched patient get into a car and leave.
== END 2023-08-10 19:56 | disposition left against medical advice (07) ==
PROVIDERS: Emergency Provider Emergency Medicine
DX: O9A.211 Injury, poisoning and certain other consequences of external causes complicating pregnancy, first trimester (principal); T39.1X5A Adverse effect of 4-Aminophenol derivatives, initial encounter; Z3A.12 12 weeks gestation of pregnancy; Y92.9 Unspecified place or not applicable
CPT/HCPCS: 99281; 99283

== ENCOUNTER 2023-09-08 23:22 | Emergency (ER) | payer MEDICAID, SELFPAY ==
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
[2023-09-08 23:29] VITALS: BP 151/83; PULSE 104; RESP 20; TEMP 36.4; O2SAT 97; BMI 23.5
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
[2023-09-09] MEDS: Lidocaine 4 % Patch ADH..PATCH 1 PATCH TRANSDERMA (02:44)
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
[2023-09-09 03:25] VITALS: BP 151/83; PULSE 104; RESP 20; TEMP 36.4; O2SAT 97
== END 2023-09-09 03:25 | disposition home or self-care (01) ==
PROVIDERS: Emergency Provider Internal Medicine
DX: O9A.212 Injury, poisoning and certain other consequences of external causes complicating pregnancy, second trimester (principal); S20.211A Contusion of right front wall of thorax, initial encounter; Z3A.16 16 weeks gestation of pregnancy; W03.XXXA Other fall on same level due to collision with another person, initial encounter; Y93.9 Activity, unspecified; Y92.9 Unspecified place or not applicable; Y99.9 Unspecified external cause status
CPT/HCPCS: 76604; 76815; 99284

== ENCOUNTER 2023-12-19 13:17 | Emergency (ER) | payer OTHER, SELFPAY ==
[2023-12-19 13:26] VITALS: BP 122/65; PULSE 89; RESP 19; TEMP 36.9; O2SAT 98; BMI 26.6
--- NOTE | 2023-12-19 13:40 | ED_ITS ---
HPI - General Adult General Chief complaint: Nausea/Vomiting/Diarrhea Stated complaint: Vomiting Source: patient Mode of arrival: ambulatory Limitations: no limitations History of Present Illness ED Provider: Lisa Walter PA-C HPI narrative: Patient is a 23 year old assigned female at with a history of currently being 30 weeks presenting to the emergency department today with nausea and vomiting. Patient states that she has been having 8 weeks of nausea and vomiting. Patient states that she was at the [facility] where they wanted to admit her for IV fluids but declined because she had things to get done in [facility]. Patient denies any dizziness, lightheadedness, abdominal pain, fever, chills, blurry vision, double vision, loss of vision, chest pain, difficulty breathing, shortness of breath, back pain, night sweats, pain with urination, increased urinary frequency, increased urinary urgency, blood in her urine or stool, syncope or a near syncopal episode, recent trauma or falls, bowel incontinence, bladder incontinence, or any other complaints at this time. Onset (ago): week(s) (8) Relieving factors: none Exacerbating factors: none Associated symptoms: nausea/vomiting Treatments prior to arrival: none Related Data Previous Rx's ?Medication ?Instructions ?Recorded clotrimazole 1 % topical cream 1 appl topical BID #45 grams 12/18/22 fluconazole 150 mg tablet 150 mg PO Q3D 2 doses #2 tabs 12/18/22 (Diflucan) doxycycline hyclate 100 mg tablet 100 mg PO BID 7 days #14 tabs 01/11/23 fluconazole 150 mg tablet 150 mg PO Q3D 2 doses #2 tabs 01/11/23 (Diflucan) metronidazole 500 mg tablet 500 mg PO BID 7 days #14 tabs 01/11/23 famotidine 20 mg tablet 20 mg PO DAILY #7 tabs 02/04/23 levetiracetam 500 mg tablet 500 mg PO BID #14 tabs 02/04/23 lidocaine 4 % topical patch 1 patch topical DAILY #10 ea 09/09/23 (Salonpas (lidocaine)) Allergies Allergy/AdvReac Type Severity Reaction Status Date / Time acetaminophen [From Tylenol] Allergy Hives Verified 12/19/23 13:28 Review of Systems 2 Constitutional: Constitutional: Reports no additional constitutional complaints, Denies chills, Denies fever(s) and Denies night sweats Eyes: Eyes: Reports no additional eye complaints, Denies blurry vision, Denies change in vision, Denies diplopia, Denies eye discharge, Denies loss of vision and Denies eye pain ENT: Denies dizziness Cardiovascular: Cardiovascular: Reports no additional cardiovascular complaints, Denies chest pain, Denies lightheadedness, Denies Loss of Consciousness and Denies dyspnea Respiratory: Respiratory: Reports no additional respiratory complaints and Denies dyspnea Gastrointestinal: Gastrointestinal: Reports no additional gastrointestinal complaints, Denies abdominal pain, Denies melena, Denies hematochezia, Denies change in bowel habits, Denies change in stool character, Reports nausea and Reports vomiting Genitourinary: Genitourinary: Denies hematuria, Denies urinary frequency, Denies dysuria, Denies urinary incontinence, Denies urinary hesitancy and Denies urinary urgency Musculoskeletal: Musculoskeletal: Reports no additional musculoskeletal complaints, Denies numbness and Denies tingling Neurologic: Denies dizziness, Denies loss of vision, Denies numbness and Denies tingling Psychiatric: Psychiatric: Reports no additional psychiatric complaints Endocrine: Endocrine: Reports no additional endocrine complaints Hematologic/Lymphatic: Hematologic/Lymphatic: Reports no additional hematologic/lymphatic complaints Allergic/Immunologic: Allergic/Immunologic: Reports no additional allergic/immunologic complaints PMFSH Past Medical History Attestation statement: The following information was validated with the patient. Source: old records reviewed and nursing notes reviewed Social History Social History Advance Directives: No Advance Directives Information Provided: Yes Do you have a plan to hurt others: No Plan Physical Exam ED Vital Signs: Vital Signs - 24 hr 12/19/23 13:26 Temperature 98.5 F Pulse Rate 89 Respiratory Rate 19 Blood Pressure 122/65 Pulse Oximetry 98 Oxygen Delivery Method Room Air BMI result Body Mass Index 26.6 Const General: cooperative, no acute distress, alert and awake Nutritional Appearance: well nourished Orientation/consciousness: patient oriented x3 Limitations: no limitations HENMT Head: Yes normal to inspection and Yes atraumatic Ears: hearing grossly normal bilaterally and external ears normal General nose exam: Normal external nose present, no nasal discharge noted and no epistaxis Face and sinus: Yes normal facial exam, No abrasion and No laceration Mouth: Normal oral and palatal mucosa present, no drooling and no muffled voice Eyes General: appearance normal, both eyes and all related structures Periorbital: periorbital findings normal Eyelids: Yes eyelids normal Conjunctivae: conjunctivae normal Pupils: Equal, round and reactive pupils present EOM: EOMs intact bilaterally Neck Neck: Yes normal visual inspection, Yes full ROM and Yes no lymphadenopathy Chest Chest palpation & inspection: normal inspection of the chest Resp Effort & Inspection: normal respiratory effort and able to speak in complete sentences GI Inspection: Yes normal to inspection Neuro General: patient oriented x3 and moves all extremities Cranial nerves: Yes Equal, round and reactive pupils present Cognition (Neuro): normal cognition Extrem General: Yes normal to inspection, Yes full ROM and Yes capillary refill normal Psych Appearance: grossly normal Mental Status: mental status grossly normal Affect: normal affect Attitude: cooperative Thought process: Normal thought process present Thought content: Normal thought content present Insight: Good insight present (Psych) Course Course Course Narrative: RME performed by Lisa Walter PA-C. Patient is a 23 year old assigned female at presenting to the emergency department with nausea and vomiting at 30 weeks . Detailed physical exam and review of systems are deferred to the tax preparer. Labs and swabs ordered. Patient placed back in the waiting room pending room availability and results. Medical Decision Making Medical Decision Making MDM Narrative: Patient is a 23 year old assigned female at with a history of being 30 weeks presenting to the emergency department today with nausea and vomiting. Patient's limited physical exam performed in triage was unremarkable. Patient's blood work was showed an appropriate HCG level and a slightly decreased magnesium of 1.5 but were otherwise unremarkable. Patient was eating a large meal while in the waiting and had no witnessed episodes of vomiting after ingesting said meal. Patient left the department without completing treatment. Patient left the department before myself or any of the other emergency department clinicians could explain to or review with the patient; physical exam findings, test results, need or lack there of for additional testing, need or lack there of for a procedure to be performed, need or lack there of for hospital admission / transfer, need or lack there of for prescription medication, treatment options, or a treatment plan. Differential Diagnosis Differential Diagnoses: The differential diagnosis associated with the presentation includes Nausea Vomiting Admission/Observation Consideration of admission/observation: Escalation of care including admission/observation considered Patient would have been admitted to the hospital had she completed her work up and it had any findings where hospital admission was appropriate, her clinical presentation warranted hospital admission, had myself or any other emergency retail department manager had the ability to discuss need or lack there of for hospital admission, and the patient hadn't left the department without completing treatment. Lab Data [facility] Lab Attestation statement: I reviewed the patient's lab results. My interpretation of these results are in the [facility] Rationale portion of this note. 12/19/23 13:53 12/19/23 13:53 Labs: Lab Results 12/19/23 Range/Units 13:53 WBC 8.7 (4.8-10.8) X10*3/uL RBC 4.42 (4.20-5.50) X10*6/uL Hgb 13.3 (12.0-16.0) g/dl Hct 38.9 (37.0-47.0) % MCV 88.0 (80.0-98.0) fL MCH 30.1 (27.0-33.0) pg MCHC 34.2 (31.0-35.0) g/dl RDW 12.8 (11.0-16.0) % Plt Count 143 L (160-400) X10*3/uL MPV 12.0 (9.4-12.3) fL Immature Gran % (Auto) 0.5 H (0.0-0.4) % Neut % (Auto) 74.9 H (45-73) % Lymph % (Auto) 18.8 L (20-40) % Lucas % (Auto) 5.0 (2-11) % Eos % (Auto) 0.6 (0-4) % Baso % (Auto) 0.2 (0-2) % Lymph # (Auto) 1.6 (1.2-4.9) X10*3/uL Lucas # (Auto) 0.4 (0.1-1.2) X10*3/uL Eos # (Auto) 0.1 (0.0-0.4) X10*3/uL Baso # (Auto) 0.0 (0.0-0.2) X10*3/uL Abs Immat Gran (auto) 0.04 H (0.00-0.03) X10*3/uL Absolute Neuts (auto) 6.5 (2.0-8.3) x10*3/uL Absolute Nucleated RBC 0.000 (0.0-0.012) X10*3/uL Nucleated RBC % (auto) 0.0 (0.0-0.2) /100WBC Sodium 135 (135-145) mmol/L Potassium 3.6 (3.3-5.1) mmol/L Chloride 106 (96-108) mmol/L Carbon Dioxide 20 L (22-29) mmol/L Anion Gap 13 (12-20) BUN 6 L (9-16) mg/dL Creatinine 0.59 (0.5-1.4) mg/dL Estim Creat Clear Calc 161.3 Estimated GFR > 60 Random Glucose 114 (60-115) mg/dL Calcium 8.8 D (8.4-10.2) mg/dL Magnesium 1.5 L (1.6-2.6) mg/dL Total Bilirubin 0.3 (0.0-1.0) mg/dL AST 15 (5-31) U/L ALT 8 (0-31) U/L Alkaline Phosphatase 97 (39-117) U/L Total Protein 6.8 (6.5-8.0) g/dL Albumin 3.5 (3.5-5.0) g/dL Beta HCG, Quant 08556 mIU/mL Urine Color Yellow Urine Appearance Turbid Urine pH 8.0 (5.0-9.0) Ur Specific [place] 1.020 (1.005-1.025) Urine Protein Trace (Neg-Trace) mg/dL Urine Glucose (UA) Negative (Negative) mg/dL Urine Ketones Negative (Negative) mg/dL Urine Blood Negative (Negative) Urine Nitrite Negative (Negative) Ur Leukocyte Esterase Large (3+) H (Negative) Urine RBC 0-2 (0-2) /HPF Urine WBC 0-5 (0-5) /HPF Ur Squamous Epith Cells 11-20 (0-2) /HPF Urine Bacteria 1+ (None Seen) Hyaline Casts 0-2 (0-2) /LPF Discharge Plan Discharge Clinical Impression: , Nausea & vomiting Patient Disposition: Left W/O Completing Treatment Prescriptions: No Action fluconazole [Diflucan] 150 mg tablet 150 mg PO Q3D Qty: 2 0RF clotrimazole 1 % cream 1 appl topical BID Qty: 45 0RF fluconazole [Diflucan] 150 mg tablet 150 mg PO Q3D Qty: 2 0RF metronidazole 500 mg tablet 500 mg PO BID 7 Days Qty: 14 0RF doxycycline hyclate 100 mg tablet 100 mg PO BID 7 Days Qty: 14 0RF famotidine 20 mg tablet 20 mg PO DAILY Qty: 7 0RF levetiracetam 500 mg tablet 500 mg PO BID Qty: 14 0RF lidocaine [Salonpas (lidocaine)] 4 % adhesive patch,medicated 1 patch topical DAILY Qty: 10 0RF Rx Instructions: may leave on for up to 12 hrs Discharge Date/Time: 12/19/23 16:33
[2023-12-19 13:59] LABS: MANUAL DIFF FLAG NO
[2023-12-19 14:05] LABS: Basophils Percent Auto 0.2 % (0-2); Eosinophils Absolute Auto 0.1 X10*3/uL (0.0-0.4); Eosinophils Percent Auto 0.6 % (0-4); Hematocrit 38.9 % (37.0-47.0); Hemoglobin 13.3 g/dl (12.0-16.0); Imm Gran Abs Auto 0.04 X10*3/uL (0.00-0.03); Imm Gran Pct Auto 0.5 % (0.0-0.4); Lymphocytes Absolute Auto 1.6 X10*3/uL (1.2-4.9); Lymphocytes Percent Auto 18.8 % (20-40); Mean Corpuscular HGB Conc 34.2 g/dl (31.0-35.0); Mean Corpuscular Hemoglobin 30.1 pg (27.0-33.0); Monocytes Absolute Auto 0.4 X10*3/uL (0.1-1.2); Neutrophils Absolute Auto 6.5 x10*3/uL (2.0-8.3); Neutrophils Percent Auto 74.9 % (45-73); Platelet Count 143 X10*3/uL (160-400); Red Blood Count 4.42 X10*6/uL (4.20-5.50); Red Cell Distribution Width 12.8 % (11.0-16.0); White Blood Count 8.7 X10*3/uL (4.8-10.8)
[2023-12-19 14:17] LABS: Appearance Urine Turbid; Color Urine Yellow; Glucose Urine UA Negative (Negative); Leukocyte Esterase Urine Large (3+) (Negative); Nitrite Urine Negative (Negative); UMIC TRIGGER UACC YES; Urine Blood Negative (Negative); Urine Ketones Negative (Negative); Urine Protein Trace mg/dL (Neg-Trace)
[2023-12-19 14:34] LABS: Alanine Aminotransferase 8 U/L (0-31); Albumin Level 3.5 g/dL (3.5-5.0); Alkaline Phosphatase 97 U/L (39-117); Anion Gap 13 (12-20); Aspartate Amino Transferase 15 U/L (5-31); Bilirubin Total 0.3 mg/dL (0.0-1.0); Blood Urea Nitrogen 6 mg/dL (9-16); Calcium 8.8 mg/dL (8.4-10.2); Carbon Dioxide 20 mmol/L (22-29); Chloride 106 mmol/L (96-108); Creatinine Clr Calc Pharmacy 161.3; Estimated Glomerular Filt Rate > 60; Glucose Random 114 mg/dL (60-115); Magnesium 1.5 mg/dL (1.6-2.6); Potassium 3.6 mmol/L (3.3-5.1); Sodium 135 mmol/L (135-145); Total Protein 6.8 g/dL (6.5-8.0)
[2023-12-19 14:49] LABS: Bacteria Urine 1+ (None Seen); RBC Urine 0-2 /HPF (0-2); UACC Culture Trigger YES; WBC Urine 0-5 /HPF (0-5)
[2023-12-19 14:50] LABS: Hyaline Casts Urine 0-2 /LPF (0-2)
[2023-12-19 14:54] LABS: HCG Quantitative 24930 mIU/mL
--- NOTE | 2023-12-19 15:24 | PC.NURSE ---
mark pryor in the [facility]
== END 2023-12-19 16:33 | disposition left against medical advice (07) ==
PROVIDERS: Physician Assistant Medical; Emergency Provider Emergency Medicine
DX: O21.0 Mild hyperemesis gravidarum (principal); Z3A.30 30 weeks gestation of pregnancy; Z79.899 Other long term (current) drug therapy
CPT/HCPCS: 36415; 80053; 81001; 81003; 83735; 84702; 85025; 87086; 99282; 99283

== ENCOUNTER 2024-01-14 20:04 | Emergency (ER) | payer OTHER, SELFPAY ==
[2024-01-14 20:11] VITALS: BP 125/62; PULSE 88; RESP 20; TEMP 36.9; O2SAT 98; BMI 25.1
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
--- NOTE | 2024-01-14 20:43 | MHC.EDTECH ---
Patient was brought into triage,labs drawn and sent to lab.
[2024-01-14 20:48] LABS: MANUAL DIFF FLAG NO
[2024-01-14 20:54] LABS: Basophils Percent Auto 0.4 % (0-2); Eosinophils Absolute Auto 0.1 X10*3/uL (0.0-0.4); Eosinophils Percent Auto 1.1 % (0-4); Hematocrit 38.8 % (37.0-47.0); Hemoglobin 13.5 g/dl (12.0-16.0); Imm Gran Abs Auto 0.05 X10*3/uL (0.00-0.03); Imm Gran Pct Auto 0.6 % (0.0-0.4); Lymphocytes Absolute Auto 2.6 X10*3/uL (1.2-4.9); Lymphocytes Percent Auto 31.8 % (20-40); Mean Corpuscular HGB Conc 34.8 g/dl (31.0-35.0); Mean Corpuscular Hemoglobin 29.9 pg (27.0-33.0); Mean Corpuscular Volume 85.8 fL (80.0-98.0); Mean Platelet Volume 10.8 fL (9.4-12.3); Monocytes Absolute Auto 0.5 X10*3/uL (0.1-1.2); Monocytes Percent Auto 5.8 % (2-11); Neutrophils Percent Auto 60.3 % (45-73); Platelet Count 283 X10*3/uL (160-400); Red Blood Count 4.52 X10*6/uL (4.20-5.50); Red Cell Distribution Width 12.7 % (11.0-16.0); White Blood Count 8.3 X10*3/uL (4.8-10.8)
[2024-01-14 21:10] LABS: Alanine Aminotransferase 17 U/L (0-31); Alkaline Phosphatase 108 U/L (39-117); Anion Gap 13 (12-20); Aspartate Amino Transferase 18 U/L (5-31); Bilirubin Total 0.3 mg/dL (0.0-1.0); Blood Urea Nitrogen 11 mg/dL (9-16); Calcium 9.4 mg/dL (8.4-10.2); Carbon Dioxide 22 mmol/L (22-29); Chloride 108 mmol/L (96-108); Creatinine Clr Calc Pharmacy 129.1; Estimated Glomerular Filt Rate > 60; Glucose Random 85 mg/dL (60-115); Magnesium 1.9 mg/dL (1.6-2.6); Potassium 3.8 mmol/L (3.3-5.1); Sodium 139 mmol/L (135-145); Total Protein 7.7 g/dL (6.5-8.0)
[2024-01-18 22:59] LABS: Levetiracetam Keppra <2.0 mcg/mL (6.0-46.0)
== END 2024-01-14 23:56 | disposition left against medical advice (07) ==
LOC: HO.ED 23:54
PROVIDERS: Physician Assistant Medical; Emergency Provider Emergency Medicine
DX: G40.909 Epilepsy, unspecified, not intractable, without status epilepticus (principal); Z79.899 Other long term (current) drug therapy
CPT/HCPCS: 36415; 80053; 80177; 83735; 85025; 99281; 99283

== ENCOUNTER 2024-03-16 11:41 | Emergency (ER) | payer OTHER, SELFPAY ==
[2024-03-16 12:05] VITALS: BP 108/55; PULSE 71; RESP 18; TEMP 36.3; O2SAT 100; BMI 25.8
--- NOTE | 2024-03-16 12:06 | ED_ITS ---
HPI - General Adult General Chief complaint: General Medical Stated complaint: test Related Data Previous Rx's ?Medication ?Instructions ?Recorded clotrimazole 1 % topical cream 1 appl topical BID #45 grams 12/18/22 fluconazole 150 mg tablet 150 mg PO Q3D 2 doses #2 tabs 12/18/22 (Diflucan) doxycycline hyclate 100 mg tablet 100 mg PO BID 7 days #14 tabs 01/11/23 fluconazole 150 mg tablet 150 mg PO Q3D 2 doses #2 tabs 01/11/23 (Diflucan) metronidazole 500 mg tablet 500 mg PO BID 7 days #14 tabs 01/11/23 famotidine 20 mg tablet 20 mg PO DAILY #7 tabs 02/04/23 levetiracetam 500 mg tablet 500 mg PO BID #14 tabs 02/04/23 lidocaine 4 % topical patch 1 patch topical DAILY #10 ea 09/09/23 (Salonpas (lidocaine)) Allergies Allergy/AdvReac Type Severity Reaction Status Date / Time acetaminophen [From Tylenol] Allergy Hives Verified 03/16/24 12:10 [facility] Social History Social History Advance Directives: No Do you have a plan to hurt others: No Plan Physical Exam ED Vital Signs: Vital Signs - 24 hr 03/16/24 12:05 Temperature 97.4 F Pulse Rate 71 Respiratory Rate 18 Blood Pressure 108/55 L Pulse Oximetry 100 Oxygen Delivery Method Room Air BMI result Body Mass Index 25.8 Course Course Course Narrative: This is a Rapid Medical Examination (RME) performed by Nicole Talbot PA-C in triage. Full HPI, ROS, assessment and treatment plan per primary provider in the Main ED. 24 yo female here requesting test. admits to chills, nausea, and vomiting. no abd pain/ cramping. 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 reports receiving the depot shot that day. has not had a menstrual period since. admits to taking a test at home which was faintly positive. would like confirmation. Plan: labs, hcg, UA Reevaluation(s) Reevaluation #1: Patient left the emergency department before myself or any of the other clinicians could review or explain physical exam findings, test results, need or lack there of for additional testing, treatment options, or a treatment plan. Medical Decision Making Lab Data 03/16/24 12:15 03/16/24 12:15 Labs: Lab Results 03/16/24 03/16/24 Range/Units 12:15 12:27 WBC 5.4 (4.8-10.8) X10*3/uL RBC 4.49 (4.20-5.50) X10*6/uL Hgb 12.9 (12.0-16.0) g/dl Hct 38.5 (37.0-47.0) % MCV 85.7 (80.0-98.0) fL MCH 28.7 (27.0-33.0) pg MCHC 33.5 (31.0-35.0) g/dl RDW 12.0 (11.0-16.0) % Plt Count 180 D (160-400) X10*3/uL MPV 11.6 (9.4-12.3) fL Immature Gran % (Auto) 0.2 (0.0-0.4) % Neut % (Auto) 53.0 (45-73) % Lymph % (Auto) 38.6 (20-40) % [place] % (Auto) 7.2 (2-11) % Eos % (Auto) 0.6 (0-4) % Baso % (Auto) 0.4 (0-2) % Lymph # (Auto) 2.1 (1.2-4.9) X10*3/uL [place] # (Auto) 0.4 (0.1-1.2) X10*3/uL Eos # (Auto) 0.0 (0.0-0.4) X10*3/uL Baso # (Auto) 0.0 (0.0-0.2) X10*3/uL Abs Immat Gran (auto) 0.01 (0.00-0.03) X10*3/uL Absolute Neuts (auto) 2.9 (2.0-8.3) x10*3/uL Absolute Nucleated RBC 0.000 (0.0-0.012) X10*3/uL Nucleated RBC % (auto) 0.0 (0.0-0.2) /100WBC Sodium 137 (135-145) mmol/L Potassium 4.4 (3.3-5.1) mmol/L Chloride 106 (96-108) mmol/L Carbon Dioxide 27 (22-29) mmol/L Anion Gap 8 L (12-20) BUN 14 (9-16) mg/dL Creatinine 0.78 (0.5-1.4) mg/dL Estim Creat Clear Calc 119.3 Estimated GFR > 60 Random Glucose 90 (60-115) mg/dL Calcium 9.7 (8.4-10.2) mg/dL Total Bilirubin 0.7 (0.0-1.0) mg/dL AST 19 (5-31) U/L ALT 11 (0-31) U/L Alkaline Phosphatase 64 (39-117) U/L Total Protein 7.5 (6.5-8.0) g/dL Albumin 4.4 (3.5-5.0) g/dL Beta HCG, Quant < 2 mIU/mL Urine Color Yellow Urine Appearance Clear Urine pH 6.0 (5.0-9.0) Ur Specific [place] >= 1.030 H (1.005-1.025) Urine Protein Negative (Neg-Trace) mg/dL Urine Glucose (UA) Negative (Negative) mg/dL Urine Ketones Negative (Negative) mg/dL Urine Blood Negative (Negative) Urine Nitrite Negative (Negative) Ur Leukocyte Esterase Negative (Negative) Urine Test NEGATIVE (NEGATIVE) Discharge Plan Discharge Clinical Impression: Encounter for test with result negative Patient Disposition: Left W/O Completing Treatment Prescriptions: No Action fluconazole [Diflucan] 150 mg tablet 150 mg PO Q3D Qty: 2 0RF clotrimazole 1 % cream 1 appl topical BID Qty: 45 0RF fluconazole [Diflucan] 150 mg tablet 150 mg PO Q3D Qty: 2 0RF metronidazole 500 mg tablet 500 mg PO BID 7 Days Qty: 14 0RF doxycycline hyclate 100 mg tablet 100 mg PO BID 7 Days Qty: 14 0RF famotidine 20 mg tablet 20 mg PO DAILY Qty: 7 0RF levetiracetam 500 mg tablet 500 mg PO BID Qty: 14 0RF lidocaine [Salonpas (lidocaine)] 4 % adhesive patch,medicated 1 patch topical DAILY Qty: 10 0RF Rx Instructions: may leave on for up to 12 hrs Print Language: Belizean
[2024-03-16 12:19] LABS: MANUAL DIFF FLAG NO
[2024-03-16 12:24] LABS: Basophils Percent Auto 0.4 % (0-2); Eosinophils Percent Auto 0.6 % (0-4); Hematocrit 38.5 % (37.0-47.0); Hemoglobin 12.9 g/dl (12.0-16.0); Imm Gran Abs Auto 0.01 X10*3/uL (0.00-0.03); Imm Gran Pct Auto 0.2 % (0.0-0.4); Lymphocytes Absolute Auto 2.1 X10*3/uL (1.2-4.9); Lymphocytes Percent Auto 38.6 % (20-40); Mean Corpuscular HGB Conc 33.5 g/dl (31.0-35.0); Mean Corpuscular Hemoglobin 28.7 pg (27.0-33.0); Mean Corpuscular Volume 85.7 fL (80.0-98.0); Mean Platelet Volume 11.6 fL (9.4-12.3); Monocytes Absolute Auto 0.4 X10*3/uL (0.1-1.2); Monocytes Percent Auto 7.2 % (2-11); Neutrophils Absolute Auto 2.9 x10*3/uL (2.0-8.3); Platelet Count 180 X10*3/uL (160-400); Red Blood Count 4.49 X10*6/uL (4.20-5.50); White Blood Count 5.4 X10*3/uL (4.8-10.8)
[2024-03-16 12:40] LABS: Appearance Urine Clear; Color Urine Yellow; Glucose Urine UA Negative (Negative); Leukocyte Esterase Urine Negative (Negative); Nitrite Urine Negative (Negative); Specific Gravity - Urine >= 1.030 (1.005-1.025); Urine Blood Negative (Negative); Urine Ketones Negative (Negative); Urine Protein Negative (Neg-Trace)
[2024-03-16 12:41] LABS: Urine Pregnancy NEGATIVE (NEGATIVE)
[2024-03-16 12:42] LABS: UPreg QC Valid YES
[2024-03-16 12:47] LABS: Alanine Aminotransferase 11 U/L (0-31); Albumin Level 4.4 g/dL (3.5-5.0); Alkaline Phosphatase 64 U/L (39-117); Anion Gap 8 (12-20); Aspartate Amino Transferase 19 U/L (5-31); Bilirubin Total 0.7 mg/dL (0.0-1.0); Blood Urea Nitrogen 14 mg/dL (9-16); Calcium 9.7 mg/dL (8.4-10.2); Carbon Dioxide 27 mmol/L (22-29); Chloride 106 mmol/L (96-108); Creatinine Clr Calc Pharmacy 119.3; Estimated Glomerular Filt Rate > 60; Glucose Random 90 mg/dL (60-115); Potassium 4.4 mmol/L (3.3-5.1); Sodium 137 mmol/L (135-145); Total Protein 7.5 g/dL (6.5-8.0)
[2024-03-16 12:49] LABS: HCG Quantitative < 2 mIU/mL
== END 2024-03-16 14:07 | disposition left against medical advice (07) ==
PROVIDERS: Physician Assistant Medical; Emergency Provider Student in an Organized Health Care Education/Training Program
DX: R11.2 Nausea with vomiting, unspecified (principal); Z79.899 Other long term (current) drug therapy
CPT/HCPCS: 36415; 80053; 81003; 81025; 84702; 85025; 99282; 99283

== ENCOUNTER 2024-08-26 00:16 | Emergency (ER) | payer OTHER, SELFPAY ==
--- NOTE | 2024-08-26 | ECG_ITS ---
Test Reason : DIZZINESS Blood Pressure : */* mmHG Vent. Rate : 76 BPM Atrial Rate : 76 BPM P-R Int : 152 ms QRS Dur : 90 ms QT Int : 376 ms P-R-T Axes : 23 76 14 degrees QTcB Int : 423 ms Normal sinus rhythm Nonspecific ST abnormality No previous ECGs available Referred By: Generic ED Physician Electronically Signed By: NOLA TIPTON MD
[2024-08-26 00:20] VITALS: BP 127/65; PULSE 79; RESP 18; TEMP 36.4; O2SAT 97; BMI 26.3
[2024-08-26 00:50] LABS: Basophils Percent Auto 0.4 % (0-2); Eosinophils Percent Auto 0.7 % (0-4); Hematocrit 37.9 % (37.0-47.0); Imm Gran Abs Auto 0.01 X10*3/uL (0.00-0.03); Imm Gran Pct Auto 0.2 % (0.0-0.4); Lymphocytes Absolute Auto 2.3 X10*3/uL (1.2-4.9); MANUAL DIFF FLAG NO; Mean Corpuscular HGB Conc 34.3 g/dl (31.0-35.0); Mean Corpuscular Hemoglobin 29.8 pg (27.0-33.0); Mean Corpuscular Volume 86.9 fL (80.0-98.0); Mean Platelet Volume 11.8 fL (9.4-12.3); Monocytes Absolute Auto 0.5 X10*3/uL (0.1-1.2); Monocytes Percent Auto 9.7 % (2-11); Neutrophils Absolute Auto 2.6 x10*3/uL (2.0-8.3); Platelet Count 142 X10*3/uL (160-400); Red Blood Count 4.36 X10*6/uL (4.20-5.50); Red Cell Distribution Width 12.4 % (11.0-16.0); White Blood Count 5.5 X10*3/uL (4.8-10.8)
[2024-08-26 01:00] LABS: Appearance Urine Clear; Color Urine Yellow; Glucose Urine UA Negative (Negative); Leukocyte Esterase Urine Negative (Negative); Nitrite Urine Negative (Negative); Specific Gravity - Urine 1.025 (1.005-1.025); UMIC TRIGGER UACC YES; Urine Blood Large (3+) (Negative); Urine Ketones Trace mg/dL (Negative); Urine Pregnancy NEGATIVE (NEGATIVE); Urine Protein Negative (Neg-Trace)
[2024-08-26 01:01] LABS: UPreg QC Valid YES
[2024-08-26 01:11] LABS: Bacteria Urine Trace (None Seen); Hyaline Casts Urine 0-2 /LPF (0-2); RBC Urine 0-2 /HPF (0-2); WBC Urine 0-5 /HPF (0-5)
[2024-08-26 01:24] LABS: Valproate 42.4 mcg/mL (50.0-100.0)
[2024-08-26 01:25] LABS: Alanine Aminotransferase 9 U/L (0-31); Albumin Level 4.2 g/dL (3.5-5.0); Alkaline Phosphatase 68 U/L (39-117); Anion Gap 14 (12-20); Aspartate Amino Transferase 19 U/L (5-31); Bilirubin Total 0.5 mg/dL (0.0-1.0); Blood Urea Nitrogen 21 mg/dL (9-16); Calcium 9.4 mg/dL (8.4-10.2); Carbon Dioxide 24 mmol/L (22-29); Chloride 106 mmol/L (96-108); Creatinine Clr Calc Pharmacy 125.2; Estimated Glomerular Filt Rate > 60; Glucose Random 92 mg/dL (60-115); Potassium 3.7 mmol/L (3.3-5.1); Sodium 140 mmol/L (135-145); Total Protein 7.2 g/dL (6.5-8.0)
[2024-08-26 02:30] VITALS: BP 107/59; PULSE 69; RESP 14; TEMP 36.8; O2SAT 99
--- NOTE | 2024-08-26 03:03 | ED_ITS ---
HPI - General Adult General Chief complaint: General Medical Stated complaint: Vaginal Bleeding Time Seen by Provider: 08/26/24 02:31 Source: patient, RN notes reviewed and old records reviewed Mode of arrival: ambulatory Limitations: no limitations History of Present Illness ED Provider: Edel OHARA narrative: 24-year-old female presents for evaluation of multiple complaints. She complains of vaginal bleeding since yesterday. She reports that her last menstrual cycle ended last week. She does have Nexplanon control and has been on that since last December. She reports that she had a headache yesterday and she asked her friend to give her some Tylenol. The patient's friend we should into the patient's bag and gave her a medication that the patient utilized was her divalproex and not Tylenol. The patient is concerned that she took an extra dose yesterday. She denies any abdominal pain Related Data Previous Rx's ?Medication ?Instructions ?Recorded clotrimazole 1 % topical cream 1 appl topical BID #45 grams 12/18/22 fluconazole 150 mg tablet 150 mg PO Q3D 2 doses #2 tabs 12/18/22 (Diflucan) doxycycline hyclate 100 mg tablet 100 mg PO BID 7 days #14 tabs 01/11/23 fluconazole 150 mg tablet 150 mg PO Q3D 2 doses #2 tabs 01/11/23 (Diflucan) metronidazole 500 mg tablet 500 mg PO BID 7 days #14 tabs 01/11/23 famotidine 20 mg tablet 20 mg PO DAILY #7 tabs 02/04/23 levetiracetam 500 mg tablet 500 mg PO BID #14 tabs 02/04/23 lidocaine 4 % topical patch 1 patch topical DAILY #10 ea 09/09/23 (Salonpas (lidocaine)) Allergies Allergy/AdvReac Type Severity Reaction Status Date / Time acetaminophen [From Tylenol] Allergy Hives Verified 08/26/24 00:28 Review of Systems 2 Constitutional: Constitutional: Denies body ache(s), Denies chills and Denies fever(s) Eyes: Eyes: Denies blurry vision ENT: Denies vertigo and Denies dizziness Cardiovascular: Cardiovascular: Denies chest pain and Denies dyspnea Respiratory: Respiratory: Denies cough and Denies dyspnea Gastrointestinal: Gastrointestinal: Denies abdominal pain and Denies nausea Genitourinary: Genitourinary: Reports menorrhagia, Denies pelvic pain and Reports vaginal discharge (bloody only) Musculoskeletal: Musculoskeletal: Denies back pain Integumentary/Breasts: Skin/Breast: Denies rash Neurologic: Denies vertigo and Denies dizziness Psychiatric: Psychiatric: Denies anxiety PMFSH Social History Social History Advance Directives: No Advance Directives Information Provided: Yes Do you have a plan to hurt others: No Plan Physical Exam ED Vital Signs: Vital Signs - 24 hr 08/26/24 00:20 08/26/24 02:30 08/26/24 03:09 Temperature 97.5 F 98.2 F 98.2 F Pulse Rate 79 69 69 Respiratory Rate 18 14 14 Blood Pressure 127/65 107/59 L 107/59 L Pulse Oximetry 97 99 99 Oxygen Delivery Method Room Air Room Air Room Air BMI result Body Mass Index 26.3 Const General: healthy appearing, comfortable, no acute distress, alert and awake Nutritional Appearance: well nourished Orientation/consciousness: patient oriented x3 HENMT Head: Yes normocephalic and Yes atraumatic Throat: Yes posterior oropharynx normal Eyes Eyelids: Yes eyelids normal Conjunctivae: conjunctivae normal Sclerae: sclerae normal Corneas: corneas normal Pupils: Equal, round and reactive pupils present EOM: EOMs intact bilaterally Neck Neck: Yes full ROM Resp Effort & Inspection: normal respiratory effort, able to speak in complete sentences and not labored GI Inspection: No distended Palpation (GI): Soft to palpation, not firm, nontender, no guarding and not rigid Other: patient declined Skin General skin exam: elasticity normal Neuro General: patient oriented x3 Cranial nerves: Yes Equal, round and reactive pupils present and Yes Bilaterally intact EOM present Cognition (Neuro): normal cognition Extrem Other: Moving all extremities well without any obvious deformities Medical Decision Making Medical Decision Making MDM Narrative: 24-year-old female presents for evaluation of multiple complaints. She reports for abnormal vaginal bleeding since yesterday as her menstrual cycle finished last week. The patient is not , she has not started or stopped control but has been on Nexplanon since December. She is not . She has no significant pain. H&H this is within normal limits, there was no anemia. The patient's abdominal exam is benign. Discussed pelvic examination which she declined. Urinalysis was significant for blood likely from vaginal bleeding not true hematuria. Patient's Depakote level is actually below therapeutic. Differential Diagnosis Differential Diagnoses: The differential diagnosis associated with the presentation includes Dysfunctional uterine bleeding Abnormal menstrual cycle UTI Lab Data MDM Lab Attestation statement: I reviewed the patient's lab results. As above 08/26/24 00:46 08/26/24 00:46 Labs: Lab Results 08/26/24 08/26/24 08/26/24 Range/Units 00:46 00:53 01:00 WBC 5.5 (4.8-10.8) X10*3/uL RBC 4.36 (4.20-5.50) X10*6/uL Hgb 13.0 (12.0-16.0) g/dl Hct 37.9 (37.0-47.0) % MCV 86.9 (80.0-98.0) fL MCH 29.8 (27.0-33.0) pg MCHC 34.3 (31.0-35.0) g/dl RDW 12.4 (11.0-16.0) % Plt Count 142 L (160-400) X10*3/uL MPV 11.8 (9.4-12.3) fL Immature Gran % (Auto) 0.2 (0.0-0.4) % Neut % (Auto) 47.0 (45-73) % Lymph % (Auto) 42.0 H (20-40) % [place] % (Auto) 9.7 (2-11) % Eos % (Auto) 0.7 (0-4) % Baso % (Auto) 0.4 (0-2) % Lymph # (Auto) 2.3 (1.2-4.9) X10*3/uL [place] # (Auto) 0.5 (0.1-1.2) X10*3/uL Eos # (Auto) 0.0 (0.0-0.4) X10*3/uL Baso # (Auto) 0.0 (0.0-0.2) X10*3/uL Abs Immat Gran (auto) 0.01 (0.00-0.03) X10*3/uL Absolute Neuts (auto) 2.6 (2.0-8.3) x10*3/uL Absolute Nucleated RBC 0.000 (0.0-0.012) X10*3/uL Nucleated RBC % (auto) 0.0 (0.0-0.2) /100WBC Sodium 140 (135-145) mmol/L Potassium 3.7 (3.3-5.1) mmol/L Chloride 106 (96-108) mmol/L Carbon Dioxide 24 (22-29) mmol/L Anion Gap 14 (12-20) BUN 21 H (9-16) mg/dL Creatinine 0.75 (0.5-1.4) mg/dL Estim Creat Clear Calc 125.2 Estimated GFR > 60 Random Glucose 92 (60-115) mg/dL Calcium 9.4 (8.4-10.2) mg/dL Total Bilirubin 0.5 (0.0-1.0) mg/dL AST 19 (5-31) U/L ALT 9 (0-31) U/L Alkaline Phosphatase 68 (39-117) U/L Total Protein 7.2 (6.5-8.0) g/dL Albumin 4.2 (3.5-5.0) g/dL Hold Yellow Top See Note Urine Color Yellow Urine Appearance Clear Urine pH 6.0 (5.0-9.0) Ur Specific [place] 1.025 (1.005-1.025) Urine Protein Negative (Neg-Trace) mg/dL Urine Glucose (UA) Negative (Negative) mg/dL Urine Ketones Trace (Negative) mg/dL Urine Blood Large (3+) H (Negative) Urine Nitrite Negative (Negative) Ur Leukocyte Esterase Negative (Negative) Urine RBC 0-2 (0-2) /HPF Urine WBC 0-5 (0-5) /HPF Ur Squamous Epith Cells 3-5 (0-2) /HPF Urine Bacteria Trace (None Seen) Hyaline Casts 0-2 (0-2) /LPF Urine Test NEGATIVE (NEGATIVE) Valproic Acid 42.4 L (50.0-100.0) mcg/mL Discharge Plan Discharge Clinical Impression: Bleeding, uterine, dysfunctional Patient Disposition: Home, Self-Care Instructions: Abnormal (Dysfunctional) Uterine Bleeding (ED) Additional Instructions: Your workup in the ER today was reassuring. This includes your blood work, your urinalysis. Your valproic acid level is lower than normal You may continue all your medications as prescribed Prescriptions: No Action fluconazole [Diflucan] 150 mg tablet 150 mg PO Q3D Qty: 2 0RF clotrimazole 1 % cream 1 appl topical BID Qty: 45 0RF fluconazole [Diflucan] 150 mg tablet 150 mg PO Q3D Qty: 2 0RF metronidazole 500 mg tablet 500 mg PO BID 7 Days Qty: 14 0RF doxycycline hyclate 100 mg tablet 100 mg PO BID 7 Days Qty: 14 0RF famotidine 20 mg tablet 20 mg PO DAILY Qty: 7 0RF levetiracetam 500 mg tablet 500 mg PO BID Qty: 14 0RF lidocaine [Salonpas (lidocaine)] 4 % adhesive patch,medicated 1 patch topical DAILY Qty: 10 0RF Rx Instructions: may leave on for up to 12 hrs Interventions: ED Discharge Assessment Last Done: 08/26/24 03:09 Discharge Date/Time: 08/26/24 03:10 Print Language: Nepali
[2024-08-26 03:09] VITALS: BP 107/59; PULSE 69; RESP 14; TEMP 36.8; O2SAT 99
== END 2024-08-26 03:10 | disposition home or self-care (01) ==
PROVIDERS: Emergency Provider Internal Medicine
DX: N93.8 Other specified abnormal uterine and vaginal bleeding (principal); R42 Dizziness and giddiness; R51.9 Headache, unspecified
CPT/HCPCS: 36415; 80053; 80164; 81001; 81003; 81025; 85025; 93005; 99283; 99284

== ENCOUNTER → 2024-08-26 00:37 | Outpatient (BNV) | payer OTHER, SELFPAY | PROVIDERS: Emergency Provider Internal Medicine; Visit Provider Internal Medicine Cardiovascular Disease | DX: R42 Dizziness and giddiness (principal) | CPT/HCPCS: 93010 ==

== ENCOUNTER → 2024-08-28 00:10 | Outpatient (BNV) | payer OTHER, SELFPAY | PROVIDERS: Emergency Provider Emergency Medicine; Visit Provider Radiology Diagnostic Radiology | DX: M79.671 Pain in right foot (principal) | CPT/HCPCS: 73620 ==

== ENCOUNTER 2024-08-28 23:27 | Emergency (ER) | payer OTHER, SELFPAY ==
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
[2024-08-28 23:50] VITALS: BP 139/86; PULSE 126; RESP 20; O2SAT 100; BMI 22.6
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
[2024-08-29] MEDS: methocarbamoL 750 MG TABLET PO (00:48)
--- NOTE | 2024-08-29 00:53 | PC.NURSE ---
pt taken to x-ray, medicated per Mar, [facility] Department here taken statement.
--- NOTE | 2024-08-29 01:04 | PC.NURSE ---
pt changed into hospital attire.
[2024-08-29 01:09] VITALS: BP 128/71; PULSE 85; RESP 19; TEMP 36.8; O2SAT 99
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
[2024-08-29 01:22] LABS: UPreg QC Valid YES; Urine Pregnancy NEGATIVE (NEGATIVE)
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
[2024-08-29 08:40] VITALS: BP 113/61; PULSE 88; RESP 19; TEMP 36.6; O2SAT 99
[2024-08-29 08:59] VITALS: BP 113/61; PULSE 88; RESP 19; TEMP 36.6; O2SAT 99
== END 2024-08-29 09:01 | disposition home or self-care (01) ==
PROVIDERS: Emergency Provider Emergency Medicine
DX: S00.91XA Abrasion of unspecified part of head, initial encounter (principal); R10.2 Pelvic and perineal pain; M79.671 Pain in right foot; M54.2 Cervicalgia; R51.9 Headache, unspecified; Y04.2XXA Assault by strike against or bumped into by another person, initial encounter; Y93.9 Activity, unspecified; Y92.9 Unspecified place or not applicable; Y99.8 Other external cause status
CPT/HCPCS: 70450; 72125; 73502; 73610; 73620; 81025; 99284; 99285

== ENCOUNTER → 2024-08-29 00:13 | Outpatient (BNV) | payer OTHER, SELFPAY | PROVIDERS: Emergency Provider Emergency Medicine; Visit Provider Radiology Diagnostic Radiology | DX: S09.90XA Unspecified injury of head, initial encounter (principal); S10.81XA Abrasion of other specified part of neck, initial encounter; M25.551 Pain in right hip; M25.571 Pain in right ankle and joints of right foot; Y04.0XXA Assault by unarmed brawl or fight, initial encounter | CPT/HCPCS: 70450; 72125; 73502; 73610 ==